=== PATIENT | male | born 1960 | race Caucasian/White ===

== ENCOUNTER 2023-10-24 19:46 | Inpatient (IN) | payer OTHER, SELFPAY ==
[2023-10-24] VITALS (8 sets, daily range): BP systolic 152–199; BP diastolic 90–115; BMI 23.5; BMI 23.4
[2023-10-24 16:48] LABS: Glucose - Point of Care 109 mg/dl (70-99)
--- NOTE | 2023-10-24 16:51 | ED.CVA ---
History of Present Illness
<Albertina River PA-C - Last Filed: 10/24/23 18:48>
General
Chief Complaint: CVA/TIA Symptoms
Source: patient and family
Exam Limitations: clinical condition
Time Seen by Provider: 10/24/23 16:38
Nursing documentation reviewed up to this point in time: agreed with
Onset of Stroke Symptoms
Onset of symptoms known: No
Time pt last seen normal is known: No
Travel History
Have you had any contact with someone who has COVID-19?: No
Do you have any symptoms of coronavirus? Fever > 100 degrees, chills, cough, shortness of breath, sore throat, loss of taste or smell, muscle aches, or headache?: No
History of Present Illness
History of Present Illness:
63-year-old male with a history of hypertension
Presents for change in mental status noticed by family while in the waiting room in the hospital waiting to [facility] Patient was picked up by his daughter and brought to the hospital. His 2 daughters and his sister
admittedly have not seen him in a while. They do report that he has had some issues with alcohol in the past. When the daughter picked him up to come to the hospital to visit his mom they thought that they smelled alcohol on his breath. Patient
was sitting next to his 2 daughters in the waiting room and at 1 point turn to one of his daughters and said where is Severo who is his other daughter who was sitting next to him. The daughter told him she is right next to you and when he looked at
her he said oh I thought you were the nurse. This was obviously off for him and after that it seemed like the family was watching him a little bit more closely, they thought maybe he had a left-sided facial droop. When he went to stand at 1 point
he stumbled almost backwards and the daughter caught him. That alerted the staff to call a rapid response. ED staff went to the scene and ultimately stroke alert ended up being called because of his other symptoms. Patient denies that he had any
alcohol today and he admits that he has days without alcohol without symptoms. He has never had an alcohol withdrawal seizure he does not believe he has an alcohol problem. He has a chronic stutter of his speech which family confirmed is baseline
for him. He also has some neuropathy in his legs and uses a cane chronically as well. Patient seems to have trouble focusing and seems overwhelmed. His daughters and sister report that he has been under a lot of stress
Review of Systems
<Albertina River PA-C - Last Filed: 10/24/23 18:48>
Review of Systems
Allergies reviewed?: Yes
Unable to obtain full review of systems at this time due to: due to acuity
All Other Systems: Not applicable
Phy Exam
<Albertina River PA-C - Last Filed: 10/24/23 18:48>
Physical Exam
Physical Exam:
GENERAL: Alert , anxious
HEAD: NCAT
EYE: pupils equal and reactive, no nystagmus, no photophobia
NECK: Supple,full rom, nontender
ENT: o/p clr, slightly dry lips
CARDIAC: tachycardic. no edema
LUNGS: Clear breath sounds bilaterally, no acute respiratory distress, no wheezes/rales/rhonchi
ABDOMEN: Soft, without focal tenderness, no r/g, no cvat
NEUROLOGICAL: Alert and orientedx 4, cn intact, very subtle facial flattening/droop to left mouth/cheek, stutter to speech, no significant dysarthria, 5/5 strength in UE/LE, sensation intact, pronates ambulates without assistance, neg pronator drift
SKIN: Warm and dry, skin intact.
MUSCULOSKELETAL: No edema, well perfused.
PSYCH: Normal and appropriate interaction.
Course
<Albertina River PA-C - Last Filed: 10/24/23 18:48>
Orders/Labs/Results
Orders:
Orders
10/24/23 16:34
CT Head W/o Cont STROKE ALERT Stat
Reason For Exam: stroke alert
10/24/23 16:37
Electrocardiogram (*1) Urgent
Reason for Study: Other
Other Reason for Exam: Possible Stroke
Bedside Glucose- Treatment ONCE
Cardiac Monitoring- Treatment ONCE
EKG- Treatment ONCE
IV Insert/Care/Rem.- Treatment PRN
Vital Signs As Directed
Frequency: Other
Weight As Directed
Frequency: Once
Comment: ZERO STRETCHER SCALE FOR ACCURATE WEIGHT
O2 Therapy [RESP] Urgent
Titrate/Wean O2 to maintain O2 sat greater than (%): 93
Special Instructions: MAINTAIN CONTINUOUS O2 SATS > OR = 93%
10/24/23 16:40
CT Head/Neck Ang STROKE ALERT Urgent
Comment:
Reason For Exam: facial droop. confusion
10/24/23 16:49
Alcohol Urgent
Complete Blood Count/With Diff Urgent
Comprehensive Metabolic Panel Urgent
PTT Urgent
Prothrombin Time Urgent
Troponin I Urgent
10/24/23 16:50
Lorazepam [Ativan] 0.5 mg IV NOW STA
10/24/23 16:55
0.9% Sodium Chloride 500 ml [Nss] 500 ml IV BOLUS
10/24/23 17:03
Thiamine Injection 500 mg 0.9% Sodium Chloride 250 ml [Nss] 250 ml IV NOW
10/24/23 17:04
0.9% Sodium Chloride [Nss (Preservative Free)] 0.25 ml IV NOW STA
10/24/23 17:30
COVID-19 Antigen Urgent
Source: Nasal Swab
Influenza A+B Rapid Molecular Urgent
KEISHA Source: Nasal Swab
Specimen Description:
10/24/23 17:45
Labetalol HCl [Trandate] 10 mg IV NOW STA
10/24/23 17:59
Lorazepam [Ativan] 1 mg IV NOW STA
10/24/23 18:00
Dextrose 5%/0.9%Sodchl 1000 ml [D5/0.9% Sodium Chloride] 1,000 ml IV 1,000 mls/hr
10/24/23 18:13
MA Neck Without Contrast Routine
Comment:
Reason For Exam: TIA
OK for patient to be off Cardiac Monitoring for MRI: No
Recent pill cam endoscopy?: No
Pacemaker/Defibrillator?: No
Brain Aneurysm Clips?: No
Have you ever worked with metal? grinding metal? welding?: No
Cochlear(ear) implants?: No
Does Pt have a Temp Sensing Cath?: No
Does the patient have IV access?: Yes
Does the patient have any stents?: No
10/24/23 18:18
Alcohol Routine
Lipid Profile [Cardiovascular Evaluation] Routine
TSH Reflex To Free T4 Routine
Urinalysis Reflex To Culture Urgent
Date Specimen was Collected: 10/24/23
Time Specimen was Collected: 16:37
10/24/23 18:19
Urine Drug Abuse Screen Routine
Date Specimen was Collected: 10/24/23
Time Specimen was Collected: 18:18
10/25/23 08:00
Aspirin Chewable [Low Strength Aspirin] 81 mg PO DAILY
Abnormal Lab Results
10/24/23 10/24/23
16:47 16:49
RBC 4.44 L 10^6/uL
(4.70-6.10)
MCV 94.1 H fL
(80.0-94.0)
MCH 33.8 H pg
(27.0-31.0)
Plt Count 111 L 10^3/uL
(130-400)
Absolute Lymphs (auto) 0.3 L 10^3/uL
(1.2-3.4)
Absolute Monos (auto) 0.8 H 10^3/uL
(0.1-0.6)
Neutrophils % 78.5 H %
(42.2-75.2)
Lymphocytes % 5.8 L %
(20.5-51.1)
Monocytes % 13.6 H %
(1.7-9.3)
Sodium 125 L mmol/L
(135-145)
Chloride 95 L mmol/L
(98-107)
Carbon Dioxide 15 L mmol/L
(22-30)
BUN 6 L mg/dl
(9-20)
Glucose 107 H mg/dl
(70-99)
Calcium 7.9 L mg/dl
(8.4-10.2)
Total Bilirubin 2.2 H mg/dl
(0.2-1.3)
AST 163 H U/L
(17-59)
POC Glucose 109 H mg/dl
(70-99)
10/24/23 16:49
10/24/23 16:49
Vital Signs
Initial and Last Documented VS:
Initial Vital Signs
BP
199/107
10/24/23 16:46
Last Documented Vital Signs
Temp Pulse Resp BP Pulse Ox
98.9 F 124 18 172/94 95
10/24/23 16:48 10/24/23 18:00 10/24/23 18:00 10/24/23 18:00 10/24/23 18:00
<Raymond Gonzalez MD - Last Filed: 10/24/23 18:19>
Orders/Labs/Results
Orders:
Orders
10/24/23 16:34
CT Head W/o Cont STROKE ALERT Stat
Reason For Exam: stroke alert
10/24/23 16:37
Electrocardiogram (*1) Urgent
Reason for Study: Other
Other Reason for Exam: Possible Stroke
Bedside Glucose- Treatment ONCE
Cardiac Monitoring- Treatment ONCE
EKG- Treatment ONCE
IV Insert/Care/Rem.- Treatment PRN
Vital Signs As Directed
Frequency: Other
Weight As Directed
Frequency: Once
Comment: ZERO STRETCHER SCALE FOR ACCURATE WEIGHT
O2 Therapy [RESP] Urgent
Titrate/Wean O2 to maintain O2 sat greater than (%): 93
Special Instructions: MAINTAIN CONTINUOUS O2 SATS > OR = 93%
10/24/23 16:40
CT Head/Neck Ang STROKE ALERT Urgent
Comment:
Reason For Exam: facial droop. confusion
10/24/23 16:49
Alcohol Urgent
Complete Blood Count/With Diff Urgent
Comprehensive Metabolic Panel Urgent
PTT Urgent
Prothrombin Time Urgent
Troponin I Urgent
10/24/23 16:50
Lorazepam [Ativan] 0.5 mg IV NOW STA
10/24/23 16:55
0.9% Sodium Chloride 500 ml [Nss] 500 ml IV BOLUS
10/24/23 17:03
Thiamine Injection 500 mg 0.9% Sodium Chloride 250 ml [Nss] 250 ml IV NOW
10/24/23 17:04
0.9% Sodium Chloride [Nss (Preservative Free)] 0.25 ml IV NOW STA
10/24/23 17:30
COVID-19 Antigen Urgent
Source: Nasal Swab
Influenza A+B Rapid Molecular Urgent
KEISHA Source: Nasal Swab
Specimen Description:
10/24/23 17:45
Labetalol HCl [Trandate] 10 mg IV NOW STA
10/24/23 17:59
Lorazepam [Ativan] 1 mg IV NOW STA
10/24/23 18:00
Dextrose 5%/0.9%Sodchl 1000 ml [D5/0.9% Sodium Chloride] 1,000 ml IV 1,000 mls/hr
10/24/23 18:13
MA Neck Without Contrast Routine
Comment:
Reason For Exam: TIA
OK for patient to be off Cardiac Monitoring for MRI: No
Recent pill cam endoscopy?: No
Pacemaker/Defibrillator?: No
Brain Aneurysm Clips?: No
Have you ever worked with metal? grinding metal? welding?: No
Cochlear(ear) implants?: No
Does Pt have a Temp Sensing Cath?: No
Does the patient have IV access?: Yes
Does the patient have any stents?: No
10/24/23 18:18
Alcohol Routine
Lipid Profile [Cardiovascular Evaluation] Routine
TSH Reflex To Free T4 Routine
Urinalysis Reflex To Culture Urgent
Date Specimen was Collected: 10/24/23
Time Specimen was Collected: 16:37
10/24/23 18:19
Urine Drug Abuse Screen Routine
Date Specimen was Collected: 10/24/23
Time Specimen was Collected: 18:18
10/25/23 08:00
Aspirin Chewable [Low Strength Aspirin] 81 mg PO DAILY
Abnormal Lab Results
10/24/23 10/24/23
16:47 16:49
RBC 4.44 L 10^6/uL
(4.70-6.10)
MCV 94.1 H fL
(80.0-94.0)
MCH 33.8 H pg
(27.0-31.0)
Plt Count 111 L 10^3/uL
(130-400)
Absolute Lymphs (auto) 0.3 L 10^3/uL
(1.2-3.4)
Absolute Monos (auto) 0.8 H 10^3/uL
(0.1-0.6)
Neutrophils % 78.5 H %
(42.2-75.2)
Lymphocytes % 5.8 L %
(20.5-51.1)
Monocytes % 13.6 H %
(1.7-9.3)
Sodium 125 L mmol/L
(135-145)
Chloride 95 L mmol/L
(98-107)
Carbon Dioxide 15 L mmol/L
(22-30)
BUN 6 L mg/dl
(9-20)
Glucose 107 H mg/dl
(70-99)
Calcium 7.9 L mg/dl
(8.4-10.2)
Total Bilirubin 2.2 H mg/dl
(0.2-1.3)
AST 163 H U/L
(17-59)
POC Glucose 109 H mg/dl
(70-99)
10/24/23 16:49
10/24/23 16:49
Vital Signs
Initial and Last Documented VS:
Initial Vital Signs
BP
199/107
10/24/23 16:46
Last Documented Vital Signs
Temp Pulse Resp BP Pulse Ox
98.9 F 124 18 172/94 95
10/24/23 16:48 10/24/23 18:00 10/24/23 18:00 10/24/23 18:00 10/24/23 18:00
<Albertina River PA-C - Last Filed: 10/24/23 18:48>
MDM/Problems Addressed
Differential Diagnosis Includes:
STROKE, DISSECTION, TGA, TME, FEVER, ALCOHOL WITHDRAWAL
MDM/Problems Addressed:
63-year-old male with a history of hypertension and some degree of alcohol abuse presents for change in mental status witnessed by his family sitting in the waiting room at the hospital while they were waiting to see another family member. The
patient apparently has not been seen by his family and a little bit and they felt that he smelled of alcohol when they picked him up today around noon. Patient was seated in the waiting room 115 when he turned to one of his daughters asking for
where the other daughter was, she was right next to him and when he looked at her he said he thought she was the nurse. This was obviously concerning to the family, the sister who has not seen him in a little while thought that maybe he had a
facial droop which she was not sure if it was chronic or not. He ultimately got up and seemed to stumble backwards and after that a rapid response was called to sending the ED staff to evaluate. At that time it was determined that he had enough
concerning symptoms to call a stroke alert. Patient was seemingly very anxious on arrival and admits to having a chronic stutter making his speech difficult to appreciate any changes in. He has a very subtle left nasolabial flattening but can
elevate his mouth. He had no other focal findings.
He really seems overwhelmed and having a hard time focusing but ultimately will answer questions appropriately. He is tachycardic in the 120s and hypertensive. I do not smell alcohol on his breath but it sounds as if he does drink beer nearly
every day and it is unclear when the last intake was. He denies that he had any today. This could make alcohol withdrawal possibility. Patient was evaluated by the neurologist upon arrival and calling up the stroke alert, she saw him Pree CT was
able to determine that he is not a TNK candidate. She did for the CTA which is being performed. In the meantime we will order and give him a dose of Ativan and thiamine and IV fluids and reassess. Patient will likely require admission for further
workup
10/24/2023 1801 PM
Patient reassessed, still tacky, 1 teens and hypertensive 180/110. Family was able to offer that the patient has had an alcohol withdrawal episode while hospitalized for another purpose previously. Patient was not initially forthcoming with that
information. I did speak with him privately and got his permission to speak with his family about the results of his testing. Patient will be hospitalized, he does have a slight metabolic acidosis and I switched his fluids to dextrose normal
saline. Will give him more Ativan before considering beta-raj for his hypertension
<Albertina River PA-C - Last Filed: 10/24/23 18:48>
*Critical Care Note
Total Time (30-74mins, 75-104mins- exclusive of procedures): Not Applicable
ED Attending Note
<Albertina River PA-C - Last Filed: 10/24/23 18:48>
-
Portions of this chart may have been created with voice recognition software.� Occasional wrong word or��sound alike� substitutions may have occurred due to the inherent limitations of voice recognition software.
<Raymond Gonzalez MD - Last Filed: 10/24/23 18:19>
ED Attending Note
I performed the substantive portion of visit, reviewed & personally made and approve the management plan that is documented in note by myself or ALHAJI.: Yes
I performed a history and physical exam of patient and discussed management with resident, I reviewed resident's note and agree with documented findings and plan of care.: Yes
ED Attending Note:
63-year-old male brought in from the lobby apparently stumbled caught by family. Seemed a little confused when visiting his mother. Patient states he is under significant family stress. Patient admits to some alcohol use but not hard alcohol.
Denies other complaints. There was a questionable facial droop noted.
On exam patient is nontoxic. He does have a known stutter. He is tachycardic and hypertensive. He has a mild left loss of nasolabial fold but no other facial droop. Cranial nerves II through XII intact otherwise. No drift. [id number]
normal. He is somewhat jittery. Nonfocal otherwise.
Stroke alert was called. Plan plain head CT was negative. Per neurology sent for CT angiography. Admission for further care.
Discharge Plan
Departure
Patient Disposition: Admit
Date of Disposition: 10/24/23
Time of Disposition: 18:04
Admit to: IMU
Presentation/result/management discussed w/ accepting MD/DO: Hospitalist
Patient with high blood pressure during this ER visit?: No
Condition: Fair
Covid-19: Not Applicable
Discharge Problem:
Alcohol withdrawal, Altered mental status
Prescriptions:
No Action
acetaminophen [Tylenol Extra Strength] 500 mg Tablet
500 mg PO DAILYPRN PRN (Reason: mild pain)
irbesartan 300 mg Tablet
300 mg PO DAILY
Patient Comments:
10/24/2023, last filled on 06/23/2023 for 90 tablets.
nebivolol 10 mg Tablet
10 mg PO DAILY
Patient Comments:
10/24/2023, last filled on 05/05/2023 for 90 tablets.
Interventions
Interventions:
*Risk Screen - Suicide Last Done: 10/24/23 16:51
*General Assessment Last Done: 10/24/23 16:50
*Neglect/Abuse Screening Last Done: 10/24/23 16:51
ED- Fall Risk Assessment Last Done: 10/24/23 16:52
*ED COVID-19 Vaccine History Last Done: 10/24/23 16:50
ED- Cardiac Assessment Last Done: 10/24/23 16:52
--- NOTE | 2023-10-24 16:54 | CON.NEURO ---
Consultation
Order
Date of Consultation: 10/24/23
Reason for Consult: Stroke alert
Called in: 16:26
CC: ' It has been a difficult day, emotionally '
HPI: This is a 63-year-old right-handed man who presented to [facility] on 10/24/2023 with encephalopathy and transient left-sided weakness. Mr. Glover was visiting his mother and was noted by his family members to be confused 'he
lost his balance after he got up from seated position and reportedly had left-sided weakness with no associated dysarthria prompting rapid response while in the hospital.
Mr. Glover himself reports no new symptoms. No family history of seizures.
ER VS: 199/100, 126, afebrile in: 6:23 pm
PDMP: Not available
Labs: Glucose�107, sodium�125 normal WBCs, platelets�111, AST�163,
CT head�no acute abnormality, diffuse
CTA head and neck�no hemodynamically significant stenosis.
EKG-sinus tachycardia, QTc Int : 435 ms
PMH: HTN, EtOH addiction,
PSH: Inguinal hernia repair
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
FH: Not contributory to current presenting
All:NKDA
ROS:Constitutional: Negative. Negative for chills, fever and unexpected weight change.
HENT: Negative for ear pain, hearing loss, tinnitus and trouble swallowing.
Eyes: Negative. Negative for photophobia, pain and visual disturbance.
Respiratory: Negative for cough, choking and shortness of breath.
Cardiovascular: Negative for chest pain, palpitations and leg swelling.
Gastrointestinal: Negative for abdominal pain and vomiting.
Endocrine: Negative. Negative for cold intolerance.
Genitourinary: Negative for dysuria, flank pain and urgency.
Musculoskeletal: positive for left knee
Skin: Negative for rash.
Allergic/Immunologic: Negative. Negative for immunocompromised state.
Neurological: Negative for dizziness, tremors, seizures, speech difficulty, numbness and headaches.
Psychiatric/Behavioral: Positive for anxiety
General: Well developed. In moderate distress due to anxiety
Cardio: Regular rate and rhythm without murmur. Extremities are without cyanosis or edema.
Neuro:
Mental Status: Alert, oriented to self, month, year. No hemineglect or aphasia. Follows simple requests consistently. Anxious
Cranial Nerves: . Pupils are equally round and reactive to light. EOMs full. Visual andrews full to confrontation. No ptosis. No nystagmus. V1-V3 intact to light touch and pinprick bilaterally, symmetric. Face symmetric. Normal hearing AU.
The palate elevated well. SCMs and traps 5/5. Tongue midline. No dysarthria.
Motor: No pronator or leg drift.
Sensory: No extinction to double simultaneous stim
Coordination: Bilateral action and postural hand tremor. No dysmetria
Gait: deferred
Assessment and Plan:
I. Hypertensive emergency. TIA. Not a candidate for IV thrombolysis due to lack of stroke syndrome.
II. EtOH addiction, suspected withdrawal
III. Hyponatremia
IV. Encephalopathy (vascular, metabolic)
-Telemetry monitoring
-Blood pressure goal�normotension
-Seizure precaution
-[facility] protocol
-Aspirin 81 mg once a day with close monitoring of thrombocytes
-Brain MRI without dorothea
-Please check LDL, hemoglobin A1c
-DVT prophylaxis
I personally reviewed all radiology and labs along with past medical records pertinent to current medical problems. Total time spent in patient care is 60 minutes.
Thank you for allowing us to participate in the care of this patient. We will continue to follow. Please do not hesitate to contact us with any questions or concerns.
Subjective/Objective
Subjective Data
Date of Service: October 24, 2023
Objective Data
Vital Signs
Temp Pulse Resp BP Pulse Ox
37.2 C 124 16 195/103 96
10/24/23 16:48 10/24/23 16:48 10/24/23 16:48 10/24/23 16:48 10/24/23 16:48
Patient Allergies
No Known Allergies Allergy (Unverified 10/24/23 16:50)
Medications
-
Active Medications
Generic Name Dose Route Start Last Admin
Trade Name Freq PRN Reason Stop Dose Admin
Lorazepam 0.5 mg 10/24/23 16:50
Lorazepam 2 Mg/Ml Vial IV 10/24/23 16:51
NOW STA
Vital Signs and Labs
-
Vital Signs and Labs:
Vital Signs
Temp Pulse Resp BP Pulse Ox
37.2 C 124 18 172/94 95
10/24/23 16:48 10/24/23 18:00 10/24/23 18:00 10/24/23 18:00 10/24/23 18:00
Lab Results
10/24/23 16:49
10/24/23 16:49
PT 13.2 Sec (11.4-14.6) 10/24/23 16:49
INR 1.02 10/24/23 16:49
APTT 27.0 Sec (23.4-35.0) 10/24/23 16:49
Sodium 125 mmol/L (135-145) L 10/24/23 16:49
Potassium 4.0 mmol/L (3.5-5.1) 10/24/23 16:49
BUN 6 mg/dl (9-20) L 10/24/23 16:49
Glucose 107 mg/dl (70-99) H 10/24/23 16:49
Calcium 7.9 mg/dl (8.4-10.2) L 10/24/23 16:49
Medications
-
Medications:
Generic Name Dose Route Start Last Admin
Trade Name Freq PRN Reason Stop Dose Admin
Dextrose/Sodium Chloride 1,000 mls @ 1,000 mls/hr 10/24/23 18:00
D5/0.9% Sodium Chloride IV
.Q1H ALIYA
[2023-10-24 16:55] LABS: % Basophils 0.7 % (0-2); % Eosinophils 0.9 % (0-6); % Immature Granulocytes 0.5 % (0-0.5); % Lymphocytes 5.8 % (20.5-51.1); % Monocytes 13.6 % (1.7-9.3); % Neutrophils 78.5 % (42.2-75.2); Absolute Eosinophils 0.1 10^3/uL (0-0.7); Absolute Lymphocytes 0.3 10^3/uL (1.2-3.4); Absolute Monocytes 0.8 10^3/uL (0.1-0.6); Absolute Neutrophils 4.5 10^3/uL (1.4-6.5); Hematocrit 41.8 % (39.0-52.0); Mean Corp Hgb Conc. 35.9 g/dL (33.0-37.0); Mean Corpuscular Hgb 33.8 pg (27.0-31.0); Mean Corpuscular Volume 94.1 fL (80.0-94.0); Mean Platelet Volume 9.6 fL (7.4-10.4); Nucleated Red Blood Cells % 0 % (-); Platelet Count 111 10^3/uL (130-400); Red Blood Cell Count 4.44 10^6/uL (4.70-6.10); Red Cell Dist. Width 11.9 % (11.5-14.5); White Blood Cell Count 5.7 10^3/uL (4.8-10.8)
[2023-10-24] MEDS: NSS 500 IV (16:59)
[2023-10-24] MEDS: ATIVAN 0.5 MG IV (17:08)
[2023-10-24 17:11] LABS: INR 1.02; PT 13.2 Sec (11.4-14.6)
[2023-10-24 17:20] LABS: ALT (SGPT) 45 U/L (0-50); AST (SGOT) 163 U/L (17-59); Albumin 4.2 g/dl (3.5-5.0); Alcohol 118 mg/dl; Alkaline Phosphatase 90 U/L (38-126); Blood Urea Nitrogen 6 mg/dl (9-20); Calcium 7.9 mg/dl (8.4-10.2); Carbon Dioxide 15 mmol/L (22-30); Chloride 95 mmol/L (98-107); Estimated Creatinine Clearance 102 ml/min; Glucose 107 mg/dl (70-99); Sodium 125 mmol/L (135-145); Total Bilirubin 2.2 mg/dl (0.2-1.3); Troponin I < 0.012 ng/ml; eGFR > 60.00
[2023-10-24] MEDS: THIAMINE INJECTION 255 MG IV (17:38)
[2023-10-24 17:51] LABS: COVID-19 Antigen Negative (Negative)
[2023-10-24] MEDS: ATIVAN 1 MG IV ×3 (18:25→23:20)
[2023-10-24] MEDS: D5/0.9% SODIUM CHLORIDE 1000 IV (18:28)
[2023-10-24] MEDS: NSS (PRESERVATIVE FREE) 0.25 ML IV (18:31)
[2023-10-24 18:36] LABS: Urine Albumin Trace (Neg - Trace); Urine Bilirubin Negative (Negative); Urine Character Clear (Clear); Urine Color Yellow; Urine Glucose Negative (Negative); Urine Ketone Negative (Negative); Urine Leukocyte Negative (Negative); Urine Nitrite Negative (Negative); Urine Occult Blood Negative (Negative); Urine Urobilinogen Negative (Neg - 1+); Urine pH 6.5 (5.0-9.0)
[2023-10-24 18:48] LABS: Amphetamines Negative (Negative); Barbiturates Negative (Negative); Benzodiazepines Negative (Negative); Buprenorphine Negative (Negative); Cocaine Negative (Negative); Marijuana Negative (Negative); Methadone Negative (Negative); Methamphetamines Negative (Negative); Opiates Negative (Negative); Phencyclidine Negative (Negative); Tricyclic Antidepressants Negative (Negative)
--- NOTE | 2023-10-24 18:53 | HPS.HSE ---
Family Physician
-
Family Physician: INTERVIEWE UNKNOWN - PT NOT
Chief Complaint
-
Slurred speech
History of Present Illness
63-year-old man was in hospital waiting room visiting family, became confused and his family thought that he had a left-sided facial droop.� Then he went to stand and stumbled (his daughter caught him).� That alerted the ER staff to call a rapid
response.� A stroke alert was called.� Patient denied that he had any alcohol today and he admits that he has days without alcohol without symptoms, but his alcohol level was 118.� He states that he has never had an alcohol withdrawal seizure and
that he does not believe he has an alcohol problem.� He has a chronic stutter of his speech, and He also has some neuropathy in his legs and uses a cane chronically as well.� Patient has trouble focusing and seems confused.� His daughters and sister
report that he has been under a lot of stress. CT and CTA do not show obvious stroke.
Medical History
Past Medical History
Past Medical History: Reports Other
Additional Past Medical History:
Essential HTN
Alcoholism
Past Surgical History: Reports None
Social History
Unable to obtain full social history at this time due to: Other (Pt intoxicated)
Tobacco: Non-smoker
Alcohol: Daily
Personal: Single
Living: Alone
Family History
Family History: Not pertinent
Allergies / Home Medications
Allergies reflects when Allergies were last updated in [employer].
Home Medications with original date entered in [employer]
Allergy/Medication List:
Allergies
Allergy/AdvReac Type Severity Reaction Status Date / Time
No Known Allergies Allergy Unverified 10/24/23 16:50
Home Medications
acetaminophen 500 mg tablet (Tylenol Extra Strength) 500 mg PO DAILYPRN PRN mild pain 10/24/23
irbesartan 300 mg tablet 300 mg PO DAILY 10/24/23
nebivolol 10 mg tablet 10 mg PO DAILY 10/24/23
Review of Systems
-
Unable to obtain full review of systems at this time due to: Other (intoxication)
History Source: Patient
A 12 point ROS was completed and negative except as noted: Yes
Physical Exam
Vital Signs
Vital Signs
Temp Pulse Resp BP Pulse Ox
98.9 F 124 18 172/94 95
10/24/23 16:48 10/24/23 18:00 10/24/23 18:00 10/24/23 18:00 10/24/23 18:00
Physical Exam
General: Well Developed, Well Nourished and Appears Chronically Ill
HEENT: NormoCephalic, Anicteric, Moist mucous membranes, Nose Appears Normal and Ears Appear Normal
Respiratory: Clear
Cardiac: S1/S2 and Tachycardia
GI: Soft, Non Tender and Non Distended
Musculoskeletal: No Clubbing, No Cyanosis and No Edema
Skin: Warm, Dry and Rash (dry flaky skin)
Neuro: Awake, Alert and Tremors
Psych: Confused and Anxious
Laboratory Results
-
10/24/23 16:49
10/24/23 16:49
Laboratory Results
PT 13.2 Sec (11.4-14.6) 10/24/23 16:49
INR 1.02 10/24/23 16:49
APTT 27.0 Sec (23.4-35.0) 10/24/23 16:49
Total Bilirubin 2.2 mg/dl (0.2-1.3) H 10/24/23 16:49
AST 163 U/L (17-59) H 10/24/23 16:49
ALT 45 U/L (0-50) 10/24/23 16:49
Alkaline Phosphatase 90 U/L (38-126) 10/24/23 16:49
Troponin I < 0.012 ng/ml 10/24/23 16:49
Data Reviewed
-
Lab Data: Labs Reviewed by me
Impression/Plan
-
IMPRESSION:
63 man with change of mental status, slurred speech, stroke alert called. Etoh 118.
PLAN:
1. Stroke alert. CT does not show obvious stroke.
Pt seen by neurology, neurology recommends:
'-Telemetry monitoring
-Blood pressure goal�normotension
-Seizure precaution
-CIWA protocol
-Aspirin 81 mg once a day with close monitoring of thrombocytes
-Brain MRI without dorothea
-Please check LDL, hemoglobin A1c
-DVT prophylaxis'
Will follow these recs.
Furhtermore, Case management needed for probable etoh rehab when ready for discharge
Full code
VCD for DVTp
[2023-10-24 18:55] LABS: Alcohol 88 mg/dl; Total Cholesterol 157 mg/dl (50-199); Triglyceride 51 mg/dl (10-149); Very Low Density Lipoprotein 10 mg/dl (0-30)
[2023-10-24 19:06] LABS: HDL Cholesterol 132 mg/dl; LDL Cholesterol, Calculated 15 mg/dl
[2023-10-24 19:26] LABS: TSH Reflex To Free T4 2.04 uIU/ml (0.47-4.68)
[2023-10-24] MEDS: D5/0.9% SODIUM CHLORIDE IV ×3 (21:20→22:06)
[2023-10-24] MEDS: NSS 1000 IV (22:12)
[2023-10-24] MEDS: THIAMINE INJECTION 200 MG IV (23:20)
[2023-10-25] VITALS (10 sets, daily range): BP systolic 118–188; BP diastolic 78–121; PULSE 103–111; O2SAT 97; BMI 23.2
[2023-10-25 00:13] LABS: Troponin I < 0.012 ng/ml
[2023-10-25] MEDS: LOPRESSOR 5 MG IV (00:28)
[2023-10-25] MEDS: ATIVAN 1 MG IV ×2 (00:28→01:14)
[2023-10-25] MEDS: TYLENOL 650 MG PO (00:38)
--- NOTE | 2023-10-25 01:00 | PTCARENOTE ---
Received pt from ED, pulled pt from stretcher to bed. AAOx3 b/l tremors. No complaints of pain- BP 185/110, HR 115- notified INFORMATION ENGINEER- see mar. MSAS score between 8-10 (see MAR), NIH-2, IVF as ordered
[2023-10-25] MEDS: PHENOBARBITAL 104 MG IV (01:20)
[2023-10-25] MEDS: NSS 1000 IV (05:08)
--- NOTE | 2023-10-25 05:30 | W.PN.UPDATE ---
Update Note
Progress Note Update
notified by nurse about increased BP 180/100s HR 130s. Pt with poss CVA and also etoh withdrawal. PT very tremulous and initially requiring very freq doses of iv ativan which did minimal. pt still remained restless and tremulous. PT not forthcoming
with how much he really drinks. Will try dose of iv phenobarb and assess response.
[2023-10-25] MEDS: BYSTOLIC 10 MG PO (08:09)
[2023-10-25] MEDS: AVAPRO 300 MG PO (08:12)
[2023-10-25] MEDS: LOW STRENGTH ASPIRIN 81 MG PO (08:12)
[2023-10-25] MEDS: FOLVITE 1 MG PO (08:13)
[2023-10-25] MEDS: THIAMINE INJECTION 200 MG IV ×3 (08:13→23:58)
--- NOTE | 2023-10-25 08:20 | PTOTSP ---
Speech Language Pathology
Pt seen for cognitive-linguistic and speech evaluations. Pt with dysfluencies, and he reported he has stuttered since childhood. Cognitive-linguistic status evaluated via the [facility] Mental Status (UMS) Examination. Pt with a
score of 7/30 where normal range is 27-30. Pt with mod-severe cognitive deficits with no awareness.
Pt also seen for clinical bedside swallow evaluation. P.O. trials of puree, regular solids, and thin liquids provided. Slightly prolonged mastication of regular solids with trace diffuse oral residue, which cleared with a cued liquid wash. Audible
swallow, potentially indicative of incoordination, noted at times with liquids. Also seen with med pass with pill first with liquid. Pt pocketing pill. Trialed whole in puree. Chewed first pill, then pocketed others, but was able to clear with a
liquid wash. Slight wet vocal quality post liquid wash with pills, which was pt was able to clear with a cued cough.
Recommend:
(1) Regular solids/thin liquids
(2) Aspiration precautions: sit upright, single sips, slow rate, ensure oral cavity clear post P.O. intake
(3) Meds whole in puree. May pocket pills with need for additional puree or sips of liquid
(4) Will consider VSE if any difficulty noted with meals.
(5) COAL BRIQUETTE MACHINE OPERATOR to continue to follow for dysphagia and cognitive-linguistic tx
[2023-10-25 08:41] LABS: % Basophils 0.8 % (0-2); % Eosinophils 0.5 % (0-6); % Immature Granulocytes 0.3 % (0-0.5); % Lymphocytes 5.2 % (20.5-51.1); % Monocytes 16.9 % (1.7-9.3); % Neutrophils 76.3 % (42.2-75.2); Absolute Lymphocytes 0.2 10^3/uL (1.2-3.4); Absolute Monocytes 0.7 10^3/uL (0.1-0.6); Absolute Neutrophils 2.9 10^3/uL (1.4-6.5); Hematocrit 38.4 % (39.0-52.0); Hemoglobin 13.6 g/dL (13.0-18.0); Mean Corp Hgb Conc. 35.4 g/dL (33.0-37.0); Mean Corpuscular Hgb 33.3 pg (27.0-31.0); Mean Corpuscular Volume 94.1 fL (80.0-94.0); Nucleated Red Blood Cells % 0 % (-); Red Blood Cell Count 4.08 10^6/uL (4.70-6.10); Red Cell Dist. Width 11.9 % (11.5-14.5); White Blood Cell Count 3.9 10^3/uL (4.8-10.8)
[2023-10-25 08:57] LABS: Troponin I < 0.012 ng/ml
[2023-10-25 09:20] LABS: Blood Urea Nitrogen 6 mg/dl (9-20); Calcium 8.4 mg/dl (8.4-10.2); Carbon Dioxide 21 mmol/L (22-30); Chloride 92 mmol/L (98-107); Estimated Creatinine Clearance > 125 ml/min; Glucose 102 mg/dl (70-99); HDL Cholesterol 107 mg/dl; LDL Cholesterol, Calculated 24 mg/dl; Potassium 3.5 mmol/L (3.5-5.1); Sodium 126 mmol/L (135-145); Total Cholesterol 139 mg/dl (50-199); Triglyceride 42 mg/dl (10-149); Very Low Density Lipoprotein 8 mg/dl (0-30); eGFR > 60.00
[2023-10-25 09:28] LABS: Mean Platelet Volume 10.3 fL (7.4-10.4)
[2023-10-25 09:29] LABS: Platelet Count 86 10^3/uL (130-400)
--- NOTE | 2023-10-25 11:26 | W.PN.HOSP.TC ---
Today's Communication/Plan
-
see bold
Assessment / Plan
Assessment / Plan
Gen: NAD, AAOx2-3.
Eyes: EOMI, PERRLA, no scleral icterus.
Neck: supple.
CV: RRR, +S1/S2, no m/r/g.
Resp: CTAB, no rales, wheezes, or rhonchi.
Abd: +BS, soft, NT, ND
Skin: No rashes.
Neuro: CN 2-12 intact, non-focal, tremulous.
Psych: moderately anxious, moderately flat affect
CT brain: No acute intracranial abnormality.
CTA head/neck: No CTA evidence for high-grade stenosis or occlusion of the arterial vasculature in the head or neck.
Confusion, L-sided facial droop:
-Occurred while patient was in the hospital waiting room visiting family. Stroke alert was called.
-Suspect symptoms are due to alcohol withdrawal
-cont MSAS protocol (thiamine/folate/Ativan PRN)
-given a dose of IV phenobarbital
-MRI brain, MRA neck pending but, as per discussion with Dr. Garcia, no acute CVA on MRI brain.
-at this point the etiology of the patient's symptoms appears to be acute delirium tremens. Start Phenobarbital taper. Transfer to IMU. Change IVFs to D5NS @ 150cc/hr.
Hyponatremia: Likely due to EtOH abuse. Check serum osm, urine osm, urine Na.
Essential hypertension: exacerbated by DTs. Cont Avapro/Bystolic.
FULL code
Unclear why pt is not on pharmacological DVT proph, will order Lovenox at this time.
Anticipated Discharge: > 48 hours
Subjective/Interval History
-
Date of Service: October 25, 2023
Objective Data
-
Labs:
Laboratory Results
10/25/23
07:54
WBC 3.9 L
Hgb 13.6
Hct 38.4 L
Plt Count 86 L D
Sodium 126 L
Potassium 3.5
Chloride 92 L
Carbon Dioxide 21 L
BUN 6 L
Creatinine 0.6 L
Glucose 102 H
Calcium 8.4
Vital Signs:
Vital Signs
Temp Pulse Resp BP Pulse Ox
98 F 103 18 174/112 98
10/25/23 07:40 10/25/23 10:01 10/25/23 07:40 10/25/23 10:01 10/25/23 07:40
I&O
10/24/23 10/25/23 10/26/23
06:59 06:59 06:59
Intake Total 240 / 240
Output Total 220 / 220
Balance 20 / 20
--- NOTE | 2023-10-25 12:03 | W.PN.NEURO.1 ---
Today's Communication / Plan
-
Can stop aspirin and NIH scales
Provide IV thiamine and folate
Monitor and treat withdrawal from alcohol
Goal normotension
PRN Ativan
Phenobarbital is reasonable
Will follow as needed call with questions or concerns
Neuro Assessment/Plan
Assessment
63-year-old man with past medical history of hypertension alcohol abuse who was waiting in the hospital room visiting his family seen to have confusion and left-sided facial asymmetry triggering stroke alert.
Significant hypertension on blood pressure check in the ER
Blood alcohol level was elevated to 118
MRI of the brain shows no infarction or hemorrhage
Etiology is most likely toxic metabolic encephalopathy or hypertensive encephalopathy
Concern for alcohol intoxication and now showing some signs concerning for withdrawal with hypertension, tremor, mild confusion
Very unlikely that this is TIA
Brain MRI is ruled out stroke
Subjective/Objective
Subjective Data
Date of Service: October 25, 2023
No acute events, patient denies headache, unilateral weakness or paresthesia, vision change, discussed MRI and CTA results
Objective Data
Vital Signs
Temp Pulse Resp BP Pulse Ox
98.2 F 90 18 163/100 94
10/25/23 11:30 10/25/23 11:30 10/25/23 11:30 10/25/23 11:30 10/25/23 11:30
Lab Results
10/25/23 07:54
10/25/23 07:54
PT 13.2 Sec (11.4-14.6) 10/24/23 16:49
INR 1.02 10/24/23 16:49
APTT 27.0 Sec (23.4-35.0) 10/24/23 16:49
Sodium 126 mmol/L (135-145) L 10/25/23 07:54
Potassium 3.5 mmol/L (3.5-5.1) 10/25/23 07:54
BUN 6 mg/dl (9-20) L 10/25/23 07:54
Glucose 102 mg/dl (70-99) H 10/25/23 07:54
Calcium 8.4 mg/dl (8.4-10.2) 10/25/23 07:54
LDL Cholesterol, Calc 24 mg/dl 10/25/23 07:54
Ur Buprenorphine Negative (Negative) 10/24/23 18:19
Patient Allergies
No Known Allergies Allergy (Unverified 10/24/23 16:50)
Review of Systems
-
History Source: Patient
All other systems: Reviewed and negative
Constitutional: No Symptoms
EENT: No Symptoms Reported
Respiratory: No Symptoms
Cardiac: No Symptoms
Abdomen/GI: No Symptoms
Genitourinary: No Symptoms
Musculoskeletal: No Symptoms
Skin: No Symptoms
Neuro: Speech Problem and See existing Neuro Note
Endocrine: No Symptoms
Hematologic / Lymphatic: No Symptoms
Allergy / Immunology: No Symptoms
Physical Exam
-
General: Comfortable and Appears Chronically Ill
HEENT: Atraumatic
Respiratory: No Dyspnea; Negative Wheezes
GI: Normal Bowel Sounds
Skin: Unremarkable
Psych: Negative Confused or Agitated
Extended Neurological Exam
Attention Span & Concentration: Awake, Alert and Interactive
Memory: Unremarkable
Tremor: Distal, Frequent and Other (Bilateral distal arm tremor, postural, not at rest)
Speech: Other (Stuttering, no aphasia, no dysarthria)
Cranial Nerve II: Left Eye: Pupillary Reactivity Unremarkable, Pupillary Size Unremarkable and Visual Louise Intact
Cranial Nerve II: Right Eye: Pupillary Reactivity Unremarkable, Pupillary Size Unremarkable and Visual Louise Intact
Cranial Nerves III, IV, : Extraocular Movement: Extraocular Movement Full in all Directions
Muscle Strength, Overall: Full Throughout
Pronator Drift: No Drift in Upper Extremities
Touch Sensation: Unremarkable
Coordination: Gihabh-hoia-bsghkz Testing Unremarkable
Data Reviewed
-
CT-A: Report Reviewed and Image Reviewed
CT Head: Report Reviewed and Image Reviewed
MRA Head: Report Reviewed and Image Reviewed
[2023-10-25] MEDS: D5/0.9% SODIUM CHLORIDE 1000 IV ×2 (12:16→18:16)
[2023-10-25] MEDS: LOVENOX 40 MG SC (12:17)
[2023-10-25] MEDS: LUMINAL 97.2000000000000028 MG PO ×3 (12:17→21:09)
[2023-10-25 12:20] LABS: Troponin I < 0.012 ng/ml
[2023-10-25 12:26] LABS: Osmolality Serum 258 mOsm/kg (275-300)
[2023-10-25] MEDS: NSS IV (12:30)
[2023-10-25 13:56] LABS: Osmolality Urine 334 mOsm/kg (300-900)
[2023-10-25 14:03] LABS: Urine Sodium 140 mmol/L (30-90)
--- NOTE | 2023-10-25 14:40 | CM ---
CM met with dtr and future son in-law and had conference call with spouse/Sonia
Pt and spouse reside in a [address] with [place]
Pt lives on the first floor
Pt is typically independent with his ADLs and drives+
Pt recently was laid off from his job and has no income stream
Pt insured through [employer] COBRA plan
PCP- Oliver Garcia
Rx- [facility] L[facility]
Of note, pt and spouse in the middle of a divorce
They remain legally
Pt has hx of alcoholism
Had a fall associated with W/D and ended up in [facility] for SNF rehab
Acute rehab recommended by therapy
PAC list provided to family
Only interested in rehabs near [facility] at this time
Plan for pt to be transferred to IMU
Explained role of prior auth in rehab coverage
As pt with COBRA policy, will need further clarification on coverage and benefits for post dc services
Discharge Disposition- acute rehab
--- NOTE | 2023-10-25 16:45 | PTCARENOTE ---
Report given to IMU RN. Pt taken to IMU in bed with belongings, calm during transfer, VSS, NSR on tele.
[2023-10-25] MEDS: LIPITOR 40 MG PO (18:17)
--- NOTE | 2023-10-25 18:37 | PTCARENOTE ---
recieved pt from 4th floor upgraded to IMU. pt calm, no tremors or signs of etoh withdrwal. sinus rythym on monitor. assessment as charted.
--- NOTE | 2023-10-25 23:30 | PTCARENOTE ---
Assumed care of Pt from day RN. Pt AAOX3 appearst o be resting comfortable. Pt remains on Q4 MSAS. Pt Q24 neuro checks completed at 2300.
[2023-10-26] VITALS (16 sets, daily range): BP systolic 123–185; BP diastolic 76–123; PULSE 75; BMI 23.3
[2023-10-26] MEDS: D5/0.9% SODIUM CHLORIDE 1000 IV ×2 (00:52→07:58)
[2023-10-26 06:01] LABS: Blood Urea Nitrogen 4 mg/dl (9-20); Carbon Dioxide 22 mmol/L (22-30); Chloride 97 mmol/L (98-107); Estimated Creatinine Clearance > 125 ml/min; Glucose 121 mg/dl (70-99); Potassium 3.2 mmol/L (3.5-5.1); Sodium 125 mmol/L (135-145); eGFR > 60.00
[2023-10-26] MEDS: LOVENOX 40 MG SC (07:57)
[2023-10-26] MEDS: BYSTOLIC 10 MG PO (07:57)
[2023-10-26] MEDS: LUMINAL 97.2000000000000028 MG PO ×3 (07:57→21:03)
[2023-10-26] MEDS: FOLVITE 1 MG PO (07:58)
[2023-10-26] MEDS: THIAMINE INJECTION 200 MG IV ×3 (07:58→23:55)
--- NOTE | 2023-10-26 10:33 | W.PN.HOSP.TC ---
Today's Communication/Plan
-
see bold
Assessment / Plan
Assessment / Plan
Gen: NAD, Awake and alert.
Eyes: EOMI, PERRLA, no scleral icterus.
Neck: supple.
CV: remains RRR, +S1/S2, no m/r/g.
Resp: remains CTAB, no rales, wheezes, or rhonchi.
Abd: +BS, soft, NT, ND
Skin: No rashes.
Neuro: CN 2-12 intact, non-focal, very minimal tremor.
Psych: calm, mildly flat affect
CT brain: No acute intracranial abnormality.
CTA head/neck: No CTA evidence for high-grade stenosis or occlusion of the arterial vasculature in the head or neck.
MRI brain: No MRI evidence for an acute infarct.
MRA neck: Normal noncontrast MRA of the neck.
Acute metabolic encephalopathy due to delirium tremens:
-presented with confusion, L-sided facial droop which occurred while patient was in the hospital waiting room visiting family. Stroke alert was called. Acute CVA was ruled out by MRI brain above.
-Suspect symptoms are due to alcohol withdrawal
-cont MSAS protocol (thiamine/folate/Ativan PRN)
-given a dose of IV phenobarbital then placed on phenobarbital taper.
-cont IVFs
Hypotonic hyponatremia:
-Likely due to EtOH abuse
-serum Osm 258, UOsm 334, Jennifer 140
-c/s nephrology
Essential hypertension:
-exacerbated by DTs. Cont Avapro/Bystolic.
Hypokalemia:
-IV K, check Mg
FULL/Lovenox
Remain in IMU today.
Anticipated Discharge: 24 - 48 hours
Subjective/Interval History
-
Date of Service: October 26, 2023
Denies CP/SOB/abd pain.
Objective Data
-
Labs:
Laboratory Results
10/26/23
05:04
Sodium 125 L
Potassium 3.2 L
Chloride 97 L
Carbon Dioxide 22
BUN 4 L
Creatinine 0.6 L
Glucose 121 H
Calcium 8.0 L
Vital Signs:
Vital Signs
Temp Pulse Resp BP Pulse Ox
98.0 F 71 16 163/93 96
10/26/23 07:38 10/26/23 06:02 10/26/23 06:02 10/26/23 06:02 10/26/23 02:00
I&O
10/25/23 10/26/23 10/27/23
06:59 06:59 06:59
Intake Total 240 / 240 2580 / 2580
Output Total 220 / 220 1300 / 1300 850 / 850
Balance 1280 / 1280 -850 / -850
[2023-10-26] MEDS: AVAPRO 300 MG PO (10:57)
[2023-10-26 11:08] LABS: Magnesium 1.8 mg/dl (1.6-2.3)
[2023-10-26] MEDS: KCL 270 MEQ IV (11:40)
--- NOTE | 2023-10-26 12:01 | CM ---
CM reviewed chart- pt in IMU and ADC 1-2 days
Pt continues on MSAS protocol- 0
Acute recommended by therapy
Outreach to Dr Fermin requesting new PT/OT order due to IMU transfer
Call with [employer] to confirm if pt has SNF or acute rehab coverage in COBRA policy
Per [employer]- policy terminated 10/06/23
Admissions confirms this as well
Bedside meeting with pt to review
He notes will make calls to follow up on insurance issue
Call to as well with update regarding termed COBRA policy
Pt referred to [facility] for [facility] justice
Discharge Disposition- acute recommended- uninsured
--- NOTE | 2023-10-26 15:21 | CON.MD ---
Consultation - Medical
-
IMP:
Acute metabolic encephalopathy due to delirium tremens
Hypotonic hyponatremia
Essential hypertension
Hypokalemia
ETOH abuse
Anemia
Thrombocytopenia
Hypocalcemia
Plan:
A/w AMS, stroke alert but w/u neg
persistent hyponatremia, no previous labs to compare
high ADH state U osmo 334, U na high on NS
suspect multifactorial etiology mainly from ETOH, poor solute intake BUN is only 4
TSH is normal, FR 48 ounces/day
will give dose of samsca
BP are high with DT, consider clonidine , already on BB
replace k
check vit D level for mild hypocalcemia
If po intake is adequate likely wean off IVF
[id number]
[2023-10-26] MEDS: LIPITOR 40 MG PO (17:45)
[2023-10-26] MEDS: SAMSCA 15 MG PO (17:45)
[2023-10-26] MEDS: LOPRESSOR 5 MG IV (17:45)
[2023-10-27] VITALS (10 sets, daily range): BP systolic 129–181; BP diastolic 54–105; PULSE 72–82; BMI 22.7
--- NOTE | 2023-10-27 04:47 | DOWNTIME ---
There was a [employer] Client Calculus Professor Downtime on 10/27/2023 from 0111 to 10/27/2023 at 0405. Downtime documentation of patient's care, including medication administrations, has been reconciled in the electronic record per guidelines. Refer to the
patient's paper chart under the miscellaneous tab to see printed paper medication records and downtime forms.
[2023-10-27 07:18] LABS: Vitamin D, 25-OH*** 14.4 ng/mL (30-80)
--- NOTE | 2023-10-27 08:54 | W.PN.HOSP.TC ---
Today's Communication/Plan
-
see bold
Assessment / Plan
Assessment / Plan
Gen: remains NAD, Awake and alert.
Eyes: EOMI, PERRLA, no scleral icterus.
Neck: supple.
CV: continues to remain RRR, +S1/S2, no m/r/g.
Resp: continues to remain CTAB, no rales, wheezes, or rhonchi.
Abd: +BS, soft, NT, ND
Skin: No rashes.
Neuro: CN 2-12 intact, non-focal.
Psych: calm, mildly flat affect
CT brain: No acute intracranial abnormality.
CTA head/neck: No CTA evidence for high-grade stenosis or occlusion of the arterial vasculature in the head or neck.
MRI brain: No MRI evidence for an acute infarct.
MRA neck: Normal noncontrast MRA of the neck.
Acute metabolic encephalopathy due to delirium tremens:
-presented with confusion, L-sided facial droop which occurred while patient was in the hospital waiting room visiting family. Stroke alert was called. Acute CVA was ruled out by MRI brain above.
-Suspect symptoms are due to alcohol withdrawal
-cont MSAS protocol (thiamine/folate/Ativan PRN)
-given a dose of IV phenobarbital then placed on phenobarbital taper.
-was on IVFs, now off
Hypotonic hyponatremia:
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
-serum Osm 258, UOsm 334, Jennifer 140
-samsca 15mg given on 10/26/23
-renal following
Essential hypertension:
-exacerbated by DTs. Cont Avapro/Bystolic.
Hypokalemia:
-s/p IV K
FULL/Lovenox
Anticipated Discharge: 24 - 48 hours
Subjective/Interval History
-
Date of Service: October 27, 2023
Denies CP/SOB/AH/VN/anxiety/diaphoresis
Objective Data
-
Vital Signs:
Vital Signs
Temp Pulse Resp BP Pulse Ox
99.2 F 61 17 159/89 100
10/27/23 03:00 10/27/23 06:09 10/27/23 06:09 10/27/23 06:09 10/27/23 04:00
I&O
10/26/23 10/27/23 10/28/23
06:59 06:59 06:59
Intake Total 2580 / 2580 1860 / 1860
Output Total 1300 / 1300 3750 / 3750
Balance 1280 / 1280 -1890 / -1890
[2023-10-27] MEDS: FOLVITE 1 MG PO (10:02)
[2023-10-27] MEDS: LUMINAL 97.2000000000000028 MG PO (10:02)
[2023-10-27] MEDS: AVAPRO 300 MG PO (10:02)
[2023-10-27] MEDS: DRISDOL (VITAMIN D2) 50000 UNITS PO (10:02)
[2023-10-27] MEDS: BYSTOLIC 10 MG PO (10:03)
[2023-10-27] MEDS: MAGNESIUM OXIDE 500 MG PO ×2 (10:03→20:41)
[2023-10-27] MEDS: THIAMINE INJECTION 200 MG IV ×2 (10:03→16:16)
[2023-10-27] MEDS: LOVENOX 40 MG SC (10:03)
[2023-10-27 10:36] LABS: Hematocrit 42.7 % (39.0-52.0); Hemoglobin 15.2 g/dL (13.0-18.0); Mean Corp Hgb Conc. 35.6 g/dL (33.0-37.0); Mean Corpuscular Hgb 33.7 pg (27.0-31.0); Mean Corpuscular Volume 94.7 fL (80.0-94.0); Mean Platelet Volume 9.7 fL (7.4-10.4); Platelet Count 103 10^3/uL (130-400); Red Blood Cell Count 4.51 10^6/uL (4.70-6.10); Red Cell Dist. Width 11.9 % (11.5-14.5)
[2023-10-27 10:47] LABS: ALT (SGPT) 37 U/L (0-50); AST (SGOT) 105 U/L (17-59); Albumin 4.3 g/dl (3.5-5.0); Alkaline Phosphatase 91 U/L (38-126); Blood Urea Nitrogen 7 mg/dl (9-20); Calcium 8.9 mg/dl (8.4-10.2); Carbon Dioxide 26 mmol/L (22-30); Chloride 97 mmol/L (98-107); Estimated Creatinine Clearance 114 ml/min; Glucose 100 mg/dl (70-99); Potassium 3.3 mmol/L (3.5-5.1); Sodium 131 mmol/L (135-145); Total Bilirubin 2.5 mg/dl (0.2-1.3); Total Protein 7.3 g/dl (6.3-8.2); eGFR > 60.00
--- NOTE | 2023-10-27 11:30 | PTCARENOTE ---
Report given to Isabella.
--- NOTE | 2023-10-27 14:10 | W.PN.NEPH.PH ---
Today's Communication / Plan
-
- Na improved to 131
Assessment/Plan
-
IMP:
Acute metabolic encephalopathy due to delirium tremens
Hypotonic hyponatremia
Essential hypertension
Hypokalemia
ETOH abuse
Anemia
Thrombocytopenia
Hypocalcemia
Plan:
A/w AMS, stroke alert but w/u neg
persistent hyponatremia, no previous labs to compare
high ADH state U osmo 334, U na high on NS
suspect multifactorial etiology mainly from ETOH, poor solute intake BUN is only 4
TSH is normal, FR 48 ounces/day
Na 131 today s/p Samsca (125 yesterday)
replace k
Vitamin D levels very low --> could consider high dose vitamin D weekly on discharge
restarted regular diet
BP are high with DT, consider clonidine if needed, already on BB
check vit D level for mild hypocalcemia
-
-
Date of Service: October 27, 2023
CC / HPI / ROS
-
Chief Complaint:
hyponatremia
History of Present Illness:
alcohol withdrawal with concern for DTs
Na 125 --> 131 s/p samsca
Review of Systems:
blood pressures remain elevated, consider clonidine
Labs
-
Labs:
WBC 4.0 10^3/uL (4.8-10.8) L 10/27/23 10:06
RBC 4.51 10^6/uL (4.70-6.10) L 10/27/23 10:06
Hgb 15.2 g/dL (13.0-18.0) 10/27/23 10:06
Hct 42.7 % (39.0-52.0) 10/27/23 10:06
Plt Count 103 10^3/uL (130-400) L 10/27/23 10:06
Sodium 131 mmol/L (135-145) L 10/27/23 10:06
Potassium 3.3 mmol/L (3.5-5.1) L 10/27/23 10:06
Chloride 97 mmol/L (98-107) L 10/27/23 10:06
Carbon Dioxide 26 mmol/L (22-30) 10/27/23 10:06
BUN 7 mg/dl (9-20) L 10/27/23 10:06
Creatinine 0.7 mg/dL (0.7-1.3) 10/27/23 10:06
eGFR > 60.00 10/27/23 10:06
Glucose 100 mg/dl (70-99) H 10/27/23 10:06
Calcium 8.9 mg/dl (8.4-10.2) 10/27/23 10:06
Albumin 4.3 g/dl (3.5-5.0) 10/27/23 10:06
Physical Exam
-
Vital Signs:
Vital Signs
Temp Pulse Resp BP Pulse Ox
98.6 F 74 18 181/105 99
10/27/23 12:44 10/27/23 12:44 10/27/23 12:44 10/27/23 12:44 10/27/23 12:44
Cardiovascular:: Regular rate and rhythm
Respiratory:: Bilateral: Coarse
Lung Excursion:: Normal
Abdomen:: Nontender and Soft
Bowel Sounds:: Normal
Extremity Edema:: None: Bilateral:
Castaneda Catheter: No
--- NOTE | 2023-10-27 14:52 | PN.CDI ---
CDI
- -
CDI:
Physician Documentation Request
Admit Date: 10/24/23 19:46
Dear Doctor Jeny,
Patient admitted for change of mental status.
ED Physician Documentation: 'where is Severo who is his other daughter who was sitting next to him...she is right next to you and when he looked at her he said oh I thought you were the nurse.'
H&P: 'his alcohol level was 118...Pt intoxicated'
10/25 Neurology PN: 'Etiology is most likely toxic metabolic encephalopathy or hypertensive encephalopathy'
10/26 Hospitalist PN: 'Acute metabolic encephalopathy due to delirium tremens'
Please specify the known or suspected type of the documented encephalopathy:
Toxic metabolic
Metabolic
Other
Use of terms such as suspected, likely, concern for, or probable (associated with a specific diagnosis that is being evaluated, monitored, or treated as if it exists) are acceptable and can be coded in the inpatient setting, when documented at the
time of discharge.
Thank you,
Barb Darling RN, BSN
CDI Specialist
Available via [employer] text
Please use your independent medical judgment in providing your response.
[2023-10-27] MEDS: LUMINAL 64.7999999999999972 MG PO ×2 (16:16→20:41)
--- NOTE | 2023-10-27 16:18 | CM ---
LAWANDA spoke with Priscila from [facility]. Per Priscila, spoke with patient yesterday, is in the process of getting documents needed from patients . CM will continue to check in with Priscila regarding patients insurance status. CM spoke with patients ,
reports if patient is stable for discharge she would like him to return home as they do not have the finances to pay for a hospital stay. CM offered support, reports that Priscila from [facility] will be calling shortly. CM spoke with Dhruv
from [place], will follow patients progress and discuss with Dr. Boateng.
Patient seen bedside, reports he is working with [facility]. PT/OT recommending acute rehab. Patient is interested in going to rehab before returning home. CM will continue to follow for discharge planning needs.
Plan; possible acute rehab, pending [facility]
--- NOTE | 2023-10-27 16:33 | EDCM ---
Patient with Dx Acute metabolic encephalopathy due to delirium tremens. Room air. PT recommends acute rehab. OT recommends acute v skilled rehab. Transferred from IMU to [facility] today.
Per prior CM notes, patient currently without insurance, and referral made to [facility].
Spoke with Jana at [place]; [facility] referral placed in [employer]. [facility] will need to [facility] to determine if patient will qualify for [place]. Physiatry Consult will be needed---> message to Dr Fermin with request.
Plan follow up with [facility] re; ability to accept and follow up after Physiatry Eval.
--- NOTE | 2023-10-27 16:40 | CM ---
Patient with Dx Acute metabolic encephalopathy due to delirium tremens. Room air. PT recommends acute rehab. OT recommends acute v skilled rehab. Transferred from IMU to [facility] today.
Per prior CM notes, patient currently without insurance, and referral made to [facility].
Spoke with Jana at [place]; [facility] referral placed in [employer]. [facility] will need to [facility] at to determine if patient will qualify for [place]. Physiatry Consult will be needed---> message to Dr Fermin with request.
Plan follow up with [facility] re; ability to accept and follow up after Physiatry Eval.
[2023-10-27] MEDS: LIPITOR 40 MG PO (17:12)
[2023-10-27] MEDS: TYLENOL 650 MG PO (20:39)
[2023-10-27] MEDS: VITAMIN B1 100 MG PO (20:41)
[2023-10-28 07:55] VITALS: BP 169/93
[2023-10-28] MEDS: AVAPRO 300 MG PO (08:17)
[2023-10-28] MEDS: BYSTOLIC 10 MG PO (08:18)
[2023-10-28] MEDS: VITAMIN B1 100 MG PO ×2 (08:18→21:00)
[2023-10-28] MEDS: LUMINAL 64.7999999999999972 MG PO ×3 (08:18→21:00)
[2023-10-28] MEDS: MAGNESIUM OXIDE 500 MG PO ×2 (08:18→21:00)
[2023-10-28] MEDS: VITAMIN D3 (cholecalciferol) 125 MCG PO (08:18)
[2023-10-28] MEDS: FOLVITE 1 MG PO (08:19)
[2023-10-28] MEDS: LOVENOX 40 MG SC (08:19)
[2023-10-28 08:20] LABS: Hematocrit 39.6 % (39.0-52.0); Hemoglobin 14.2 g/dL (13.0-18.0); Mean Corp Hgb Conc. 35.9 g/dL (33.0-37.0); Mean Corpuscular Hgb 33.7 pg (27.0-31.0); Mean Corpuscular Volume 94.1 fL (80.0-94.0); Mean Platelet Volume 10.2 fL (7.4-10.4); Platelet Count 106 10^3/uL (130-400); Red Blood Cell Count 4.21 10^6/uL (4.70-6.10); Red Cell Dist. Width 11.9 % (11.5-14.5); White Blood Cell Count 4.1 10^3/uL (4.8-10.8)
--- NOTE | 2023-10-28 08:28 | W.PN.HOSP.TC ---
Addendum entered and electronically signed by Benoit Fermin MD 10/28/23 13:43:
Acute toxic metabolic encephalopathy.
Original Note:
Today's Communication/Plan
-
see bold
Assessment / Plan
Assessment / Plan
Gen: continues to remain NAD, Awake and alert.
Eyes: EOMI, PERRLA, no scleral icterus.
Neck: supple.
CV: RRR, +S1/S2, no m/r/g.
Resp: CTAB, no rales, wheezes, or rhonchi.
Abd: remains +BS, soft, NT, ND
Skin: No rashes.
Neuro: remains CN 2-12 intact, non-focal.
Psych: calm, mildly flat affect
CT brain: No acute intracranial abnormality.
CTA head/neck: No CTA evidence for high-grade stenosis or occlusion of the arterial vasculature in the head or neck.
MRI brain: No MRI evidence for an acute infarct.
MRA neck: Normal noncontrast MRA of the neck.
Acute metabolic encephalopathy due to delirium tremens:
-presented with confusion, L-sided facial droop which occurred while patient was in the hospital waiting room visiting family. Stroke alert was called. Acute CVA was ruled out by MRI brain above.
-Suspect symptoms are due to alcohol withdrawal
-cont MSAS protocol (thiamine/folate/Ativan PRN)
-given a dose of IV phenobarbital then placed on phenobarbital taper.
-was on IVFs, now off
Hypotonic hyponatremia:
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
-serum Osm 258, UOsm 334, Jennifer 140
-samsca 15mg given on 10/26/23
-renal following
Essential hypertension:
-exacerbated by DTs. Cont Avapro/Bystolic.
-start Norvasc 5mg daily
Hypokalemia:
-PO K
FULL/Lovenox
Anticipated Discharge: 24 - 48 hours
Subjective/Interval History
-
Date of Service: October 28, 2023
Denies CP/SOB.
Objective Data
-
Labs:
Laboratory Results
10/28/23
07:20
WBC Pending
Hgb Pending
Hct Pending
Plt Count Pending
Sodium Pending
Potassium Pending
Chloride Pending
Carbon Dioxide Pending
BUN Pending
Creatinine Pending
Glucose Pending
Calcium Pending
Total Bilirubin Pending
AST Pending
ALT Pending
Alkaline Phosphatase Pending
Vital Signs:
Vital Signs
Temp Pulse Resp BP Pulse Ox
98.5 F 64 20 164/70 99
10/27/23 23:52 10/28/23 08:18 10/27/23 23:52 10/28/23 08:18 10/27/23 23:52
I&O
10/27/23 10/28/23 10/29/23
06:59 06:59 06:59
Intake Total 1860 / 1860 480 / 480
Output Total 3750 / 3750 800 / 800
Balance -1890 / -1890 -320 / -320
[2023-10-28 08:49] LABS: ALT (SGPT) 31 U/L (0-50); AST (SGOT) 82 U/L (17-59); Albumin 3.7 g/dl (3.5-5.0); Alkaline Phosphatase 87 U/L (38-126); Blood Urea Nitrogen 8 mg/dl (9-20); Calcium 8.4 mg/dl (8.4-10.2); Carbon Dioxide 27 mmol/L (22-30); Chloride 95 mmol/L (98-107); Estimated Creatinine Clearance > 125 ml/min; Glucose 80 mg/dl (70-99); Potassium 3.2 mmol/L (3.5-5.1); Sodium 128 mmol/L (135-145); Total Protein 6.3 g/dl (6.3-8.2); eGFR > 60.00
--- NOTE | 2023-10-28 09:45 | WOUNDNOTE ---
[facility] RN note: Patient admitted with change in mental status secondary to delirium, tremors. Patient stated he lives with his . Plan is rehab transfer when discharged.
See H&P for complete history.
PMH: neuropathy, ETOH use, HTN.
Wound Location and type/assessment: Patient admitted with: Linear red intact skin sacral/coccyx crease r/t moisture. R great toe and L dorsal 4th toe pinpoint scabbed dry abrasion. Patient developed an upper buttocks faint blanchable red linear
maricruz from bedpan use. He's been having some loose stools.
Appetite: good.
Pressure redistribution devices in place: [employer] Air bed. Patient can turn self in bed.
Plan: Discussed local care with PCT Nimisha and discussed with ALEX Tapia. Air chair cushion given. Heels off bed with pillow. Suggested patient follow up with a firearms expert for toenail cutting (R great toenail long).
Care plan to be updated. Will sign off. Contact if needed.
--- NOTE | 2023-10-28 09:45 | WOUNDNOTE ---
SACRAL/COCCYX/BUTTOCKS
--- NOTE | 2023-10-28 09:46 | WOUNDNOTE ---
SACRAL/BUTTOCKS (Linear maricruz blanchable faint red)
[2023-10-28] MEDS: KLOR-CON 40 MEQ PO (10:33)
[2023-10-28] MEDS: NORVASC 5 MG PO (12:46)
--- NOTE | 2023-10-28 13:33 | W.PN.NEPH.PH ---
Today's Communication / Plan
-
- Na down at 128, continue to monitor
- k repletion
Assessment/Plan
-
IMP:
Acute metabolic encephalopathy due to delirium tremens
Hypotonic hyponatremia
Essential hypertension
Hypokalemia
ETOH abuse
Anemia
Thrombocytopenia
Hypocalcemia
Plan:
A/w AMS, stroke alert but w/u neg
persistent hyponatremia, no previous labs to compare
high ADH state U osmo 334, U na high on NS
suspect multifactorial etiology mainly from ETOH, poor solute intake BUN is only 4
TSH is normal, FR 48 ounces/day
Na 128 today s/p Samsca x1 (125)
replace k as this will imporve Na as well
Vitamin D levels very low --> could consider high dose vitamin D weekly on discharge
restarted regular diet
BP are high with DT, consider clonidine if needed, already on BB
check vit D level for mild hypocalcemia
-
-
Date of Service: October 28, 2023
CC / HPI / ROS
-
Chief Complaint:
hyponatremia
History of Present Illness:
alcohol withdrawal with concern for DTs
Na 125 --> 131 s/p samsca. down to 128 today
Review of Systems:
blood pressures remain elevated, consider clonidine
Labs
-
Labs:
WBC 4.1 10^3/uL (4.8-10.8) L 10/28/23 07:20
RBC 4.21 10^6/uL (4.70-6.10) L 10/28/23 07:20
Hgb 14.2 g/dL (13.0-18.0) 10/28/23 07:20
Hct 39.6 % (39.0-52.0) 10/28/23 07:20
Plt Count 106 10^3/uL (130-400) L 10/28/23 07:20
Sodium 128 mmol/L (135-145) L 10/28/23 07:20
Potassium 3.2 mmol/L (3.5-5.1) L 10/28/23 07:20
Chloride 95 mmol/L (98-107) L 10/28/23 07:20
Carbon Dioxide 27 mmol/L (22-30) 10/28/23 07:20
BUN 8 mg/dl (9-20) L 10/28/23 07:20
Creatinine 0.6 mg/dL (0.7-1.3) L 10/28/23 07:20
eGFR > 60.00 10/28/23 07:20
Glucose 80 mg/dl (70-99) 10/28/23 07:20
Calcium 8.4 mg/dl (8.4-10.2) 10/28/23 07:20
Albumin 3.7 g/dl (3.5-5.0) 10/28/23 07:20
Physical Exam
-
Vital Signs:
Vital Signs
Temp Pulse Resp BP Pulse Ox
97.9 F 66 18 145/72 99
10/28/23 07:55 10/28/23 12:46 10/28/23 07:55 10/28/23 12:46 10/28/23 07:55
Cardiovascular:: Regular rate and rhythm
Respiratory:: Bilateral: CTA
Lung Excursion:: Normal
Abdomen:: Nontender and Soft
Bowel Sounds:: Normal
Extremity Edema:: None: Bilateral:
Castaneda Catheter: No
--- NOTE | 2023-10-28 14:03 | CON.MD ---
Documented by User: Narcisa Hughes PA-C 10/28/23 17:15
Consultation - Medical
-
Referring Provider:
Chief Complaint: weakness LLE, Debility
History of Present Illness: This is 63-year-old male with PMH of (alcohol abuse, essential hypertension, peripheral neuropathy of legs)-presented with confusion, L-sided facial droop which occurred while patient was in the hospital waiting room
visiting family on 10/24/2023.�Stroke alert was called. Acute CVA was ruled out by MRI of the brain without evidence for an acute infarct and noncontrast MRA neck: Normal. -Suspect symptoms are due to alcohol withdrawal and acute metabolic
encephalopathy due to delirium tremens. Patient reports weakness of left lower extremity secondary to knee problem. Has seen [facility] in the past and was told that he needs left knee replacement. He was referred to physical therapy but
was unable to afford it therefore never completed. He uses a cane with ambulation for support. He denies neuropathy of the lower extremities.
CT brain: No acute intracranial abnormality.
CTA head/neck: No CTA evidence for high-grade stenosis or occlusion of the arterial vasculature in the head or neck.
MRI brain: No MRI evidence for an acute infarct.
MRA neck: Normal noncontrast MRA of the neck.
Past Medical History: alcohol abuse, essential hypertension
Procedure History: Reports None
Family History: no contributory
Social History:
Functional Level Premorbidly: Independent with all activities. Uses a cane
Functional Level Currently: Supine to sit, supervision, patient is a little shaky overall with movement. Sit to stand transfer�mod assist, stand to sit�min assist, stand/pivot/sit,�mod assist, patient ambulated 20 feet with rolling walker and mod
assist times 1+ second person for added assistance and line management. Gait is shaky, unsteady, step to gait, lacks heel strike left lower extremity. Grooming�set up, lower extremity self-care�min assist.
Tobacco: Denies
Alcohol: Etoh abuse
Drug use: Denies
Lives with: Family
24-hour assistance available: no
Number of floors: Multi�level
# steps to enter: 0
# steps to second floor: 12 steps if wishes to go to 1st floor. Work has 10-12 steps
Potential First floor set up:yes- basement set-up. No steps
Driving: Yes
Occupation: Works full-time- sells commercial lights
�
Allergies:
Allergy/AdvReac Type Severity Reaction Status Date / Time
No Known Allergies Allergy Unverified 10/24/23 16:50
Review of Systems:
Constitutional: (x) Normal _
Eye: (x) Normal _
Ear/Nose/Throat: (x) Normal _
Respiratory: (x) Normal _
Cardiovascular: (x) HTN
Gastrointestinal: (x) Normal _
Genitourinary: (x) Normal _
Musculoskeletal: (x) debility, off balance,left knee pain
Integumentary: (x) Normal _
Neurologic: (x) Normal _
Psychiatric: (x) DT due to withdraw
Endocrine: (x) Normal _
Hematologic/Lymphatic: (x) Normal _
Allergic/Immunologic: (x) Normal _
Medications:
Active Current Visit Medication List
Category Date Time Status
0.9% Sodium Chloride [Nss (Preservative Free)] Med 10/24/23 21:32 Active
See Protocol IV PRN PRN
Acetaminophen [Tylenol/Feverall] Med 10/24/23 21:32 Active
650 mg RECTAL Q4HPRN PRN
Acetaminophen [Tylenol] Med 10/24/23 21:32 Active
650 mg PO Q4HPRN PRN
Amlodipine [Norvasc] Med 10/28/23 11:00 Active
5 mg PO DAILY
Atorvastatin [Lipitor] Med 10/25/23 18:00 Active
40 mg PO QPM
Cholecalciferol (Vitamin D3) [VITAMIN D3 ( Med 10/28/23 08:00 Active
cholecalciferol)]
125 mcg PO DAILY
Enoxaparin Sodium [Lovenox] Med 10/25/23 13:00 Active
40 mg SC DAILY
FOLic ACID [Folvite] Med 10/25/23 08:00 Active
1 mg PO DAILY
FOLic ACID [Folvite] 1 mg Med 10/24/23 21:32 Active
0.9% Sodium Chloride 50 ml [Nss] 50 ml
IV DAILYPRN
Flush (0.9% Sodium Chloride) [Flush (Nss)] Med 10/24/23 22:00 Active
See Dose Instructions IV PER PROTOCOL
Irbesartan [Avapro] Med 10/25/23 08:00 Active
300 mg PO DAILY
Lorazepam [Ativan] Med 10/24/23 21:32 Active
1 mg IV Q1HPRN PRN
Lorazepam [Ativan] Med 10/24/23 21:32 Active
1 mg PO Q2HPRN PRN
Lorazepam [Ativan] Med 10/24/23 21:32 Active
2 mg IV Q1HPRN PRN
Magnesium Oxide Med 10/27/23 09:00 Active
500 mg PO BID
Metoprolol [Lopressor] Med 10/25/23 00:10 Active
5 mg IV Q4HPRN PRN
Nebivolol HCl [Bystolic] Med 10/25/23 08:00 Active
10 mg PO DAILY
Phenobarbital [Luminal] Med 10/29/23 16:00 Active
32.4 mg PO TID
Phenobarbital [Luminal] Med 10/27/23 16:00 Active
64.8 mg PO TID
Thiamine HCl [Vitamin B1] Med 10/27/23 20:00 Active
100 mg PO BID
Vitals:
Temp Pulse Resp BP Pulse Ox
97.9 F 66 18 145/72 99
10/28/23 07:55 10/28/23 12:46 02/22/24 07:55 10/28/23 12:46 10/28/23 07:55
Height 6 ft
Actual Weight 75.9 kg
Body Mass Index (BMI) 22.7
Physical Exam:
General Appearance/Observation: Well-developed, well-nourished individual in no apparent distress.
Pain/Comfort Assessment: Denies
Mood/Affect: Appropriate
Integumentary/Operative Site:
�� Pressure Ulcer Evaluation: absent over heels. callous bottom of right foot. Very dry and hard skin-bottom of feet
��
�� Other Type of Wound: absent, ecchymosis both arms
��
Eyes: Conjunctiva/Lids: normal ��� Pupils: pupils equal round and reactive to light and Accommodation
Ears/Nose/Throat: oral mucosa moist,� throat clear.������������ Lips/Teeth/Gums: poor dentition. Dry skin, lips
Neck: No muscle spasm or tenderness
Cardiovascular: Heart: regular, no murmur
Pulses: dorsalis pedis 2+ bilaterally
Respiratory: Respiratory Effort/Chest Expansion: normal ������ Auscultation: Clear to auscultation bilaterally
Gastrointestinal: abdomen not tender, no distension, borborygmi and hyperactive abdominal bowel sounds
Genitourinary: Castaneda with yellow urine
Extremities: Edema: None Cyanosis: None Trophic changes: None
Neurology Exam:
Orientation: Alert, Oriented to self, Time, Place
Memory: Intact for immediate medical concerns
Higher cortical function- able to count backward by 3 from 20-0
Repetition: Intact
Comprehension: Intact
Two step command: Intact
Naming: Intact
Cranial Nerves:
�� CNII: Pupillary light reflex: Intact��� Visual Field: Intact
�� CN III, IV, : Extraocular muscles: Intact
�� CN V: Facial Sensation at Forehead: Intact, Maxilla: Intact, Mandible: Intact
�� CN VII: Facial movement: Symmetric
�� CN VIII: Hearing: Normal
�� CN IX/X: Speech & swallow: Normal, Position of Uvula: Midline
�� CN XI: Shoulder shrug: Symmetric
�� CN XII: Tongue protrusion: deviated to the right
Sensory:
�� Light touch: Intact in bilateral upper and lower extremities
��
Reflexes:
�� Biceps: 3+ bilaterally
�� Brachioradialis: 3+ bilaterally
�� Triceps: 3+ bilaterally
�� Patellar: 2+ bilaterally
�� Achilles: 1+ bilaterally
�� Babinski: ? upward going on left
�� Clonus: ? on left. rigidity
�� Greg: Negative bilaterally
Cerebellar: Dysmetria/Ataxia: None
Musculoskeletal:
Motor: (Manual muscle scale 0-5)
Muscle SA EF WE EE FF FA HF KE DF EHL PF
Right� 5 5 5 5 5 5 5 5 5 5 5
Left 5 5 5 5 5 5 4 4 5 5 5
Tone: Normal in all extremities, except increased in Left>right ankle
Range of Motion: Passively within normal limits in all extremities, except diminished full extension of left knee
Lab Results
Labs
WBC 4.1 10^3/uL (4.8-10.8) L 10/28/23 07:20
RBC 4.21 10^6/uL (4.70-6.10) L 10/28/23 07:20
Hgb 14.2 g/dL (13.0-18.0) 10/28/23 07:20
Hct 39.6 % (39.0-52.0) 10/28/23 07:20
MCV 94.1 fL (80.0-94.0) H 10/28/23 07:20
MCH 33.7 pg (27.0-31.0) H 10/28/23 07:20
MCHC 35.9 g/dL (33.0-37.0) 10/28/23 07:20
RDW 11.9 % (11.5-14.5) 10/28/23 07:20
Plt Count 106 10^3/uL (130-400) L 10/28/23 07:20
MPV 10.2 fL (7.4-10.4) 10/28/23 07:20
Abs Immat Gran (auto) 0.0 10^3/uL (0-0.05) 10/25/23 07:54
Absolute Neuts (auto) 2.9 10^3/uL (1.4-6.5) 10/25/23 07:54
Absolute Lymphs (auto) 0.2 10^3/uL (1.2-3.4) L 10/25/23 07:54
Absolute Monos (auto) 0.7 10^3/uL (0.1-0.6) H 10/25/23 07:54
Absolute Eos (auto) 0.0 10^3/uL (0-0.7) 10/25/23 07:54
Absolute Basos (auto) 0.0 10^3/uL (0-0.2) 10/25/23 07:54
Immature Gran % 0.3 % (0-0.5) 10/25/23 07:54
Neutrophils % 76.3 % (42.2-75.2) H 10/25/23 07:54
Lymphocytes % 5.2 % (20.5-51.1) L 10/25/23 07:54
Monocytes % 16.9 % (1.7-9.3) H 10/25/23 07:54
Eosinophils % 0.5 % (0-6) 10/25/23 07:54
Basophils % 0.8 % (0-2) 10/25/23 07:54
Nucleated RBC % 0 % (-) 10/25/23 07:54
PT 13.2 Sec (11.4-14.6) 10/24/23 16:49
INR 1.02 10/24/23 16:49
APTT 27.0 Sec (23.4-35.0) 10/24/23 16:49
Sodium 128 mmol/L (135-145) L 10/28/23 07:20
Potassium 3.2 mmol/L (3.5-5.1) L 10/28/23 07:20
Chloride 95 mmol/L (98-107) L 10/28/23 07:20
Carbon Dioxide 27 mmol/L (22-30) 10/28/23 07:20
BUN 8 mg/dl (9-20) L 10/28/23 07:20
Creatinine 0.6 mg/dL (0.7-1.3) L 10/28/23 07:20
Estimated Creat Clear > 125 ml/min 10/28/23 07:20
eGFR > 60.00 10/28/23 07:20
Glucose 80 mg/dl (70-99) 10/28/23 07:20
Serum Osmolality 258 mOsm/kg (275-300) L 10/25/23 11:48
Calcium 8.4 mg/dl (8.4-10.2) 10/28/23 07:20
Magnesium 1.8 mg/dl (1.6-2.3) 10/26/23 05:04
Total Bilirubin 2.0 mg/dl (0.2-1.3) H 10/28/23 07:20
AST 82 U/L (17-59) H 10/28/23 07:20
ALT 31 U/L (0-50) 10/28/23 07:20
Alkaline Phosphatase 87 U/L (38-126) 10/28/23 07:20
Troponin I < 0.012 ng/ml 10/25/23 11:48
Total Protein 6.3 g/dl (6.3-8.2) 10/28/23 07:20
Albumin 3.7 g/dl (3.5-5.0) 10/28/23 07:20
Triglycerides 42 mg/dl (10-149) 10/25/23 07:54
Total Cholesterol 139 mg/dl (50-199) 10/25/23 07:54
LDL Cholesterol, Calc 24 mg/dl 10/25/23 07:54
VLDL Cholesterol, Calc 8 mg/dl (0-30) 10/25/23 07:54
HDL Cholesterol 107 mg/dl 10/25/23 07:54
Vitamin D 25-Hydroxy 14.4 ng/mL (30-80) L 10/27/23 05:24
TSH (Reflex) 2.04 uIU/ml (0.47-4.68) 10/24/23 18:18
Urine Color Yellow 10/24/23 18:18
Urine Clarity Clear (Clear) 10/24/23 18:18
Urine pH 6.5 (5.0-9.0) 10/24/23 18:18
Ur Specific [place] 1.010 (<1.030) 10/24/23 18:18
Urine Ketones Negative (Negative) 10/24/23 18:18
Ur Occult Blood Reflex Negative (Negative) 10/24/23 18:18
Urine Nitrite (Reflex) Negative (Negative) 10/24/23 18:18
Urine Bilirubin Negative (Negative) 10/24/23 18:18
Urine Urobilinogen Negative (Neg - 1+) 10/24/23 18:18
Leukocyte Esterase Rfl Negative (Negative) 10/24/23 18:18
Urine Osmolality 334 mOsm/kg (300-900) 10/25/23 13:19
Urine Sodium 140 mmol/L (30-90) H 10/25/23 13:19
Urine Glucose Negative (Negative) 10/24/23 18:18
Urine Albumin (Reflex) Trace (Neg - Trace) 10/24/23 18:18
Urine Opiates Screen Negative (Negative) 10/24/23 18:19
Ur Buprenorphine Negative (Negative) 10/24/23 18:19
Ur Oxycodone Screen Negative (Negative) 10/24/23 18:19
Urine Methadone Screen Negative (Negative) 10/24/23 18:19
Ur Barbiturates Screen Negative (Negative) 10/24/23 18:19
Ur Tricyclics Screen Negative (Negative) 10/24/23 18:19
Ur Phencyclidine Scrn Negative (Negative) 10/24/23 18:19
Ur Amphetamines Screen Negative (Negative) 10/24/23 18:19
U Methamphetamines Scrn Negative (Negative) 10/24/23 18:19
U Benzodiazepines Scrn Negative (Negative) 10/24/23 18:19
Urine Cocaine Screen Negative (Negative) 10/24/23 18:19
U Marijuana (THC) Screen Negative (Negative) 10/24/23 18:19
Alcohol, Quantitative 88 mg/dl 10/24/23 18:18
SARS-CoV-2 Antigen Negative (Negative) 10/24/23 17:30
POC Glucose 109 mg/dl (70-99) H 10/24/23 16:47
�
Diagnostic Results: as per HPI
Assessment This is 63-year-old male with PMH of (alcohol abuse, essential hypertension, peripheral neuropathy of legs)-presented with confusion, L-sided facial droop which occurred while patient was in the hospital waiting room visiting family on
10/24/2023.�Stroke alert was called. Acute CVA was ruled out by MRI of the brain without evidence for an acute infarct and noncontrast MRA neck: Normal. -Suspect symptoms are due to alcohol withdrawal and acute metabolic encephalopathy due to
delirium tremens:
Plan
PT/OT to increase independence with ADLs, improve balance, coordination, endurance, strength, mobility, community reintegration, decreased burden of care on others and family education.
Debility:Continue PT/OT for improved endurance.
Acute metabolic encephalopathy due to delirium tremens. Phenobarbital, IV lorazepam, thiamine, magnesium oxide, folic acid 1 mg, Metoprolol IV prn
Essential HTN: -exacerbated by DTs. Cont Avapro 300mg, Bystolic 10mg. Norvasc. monitor closely
Anemia: Likely multifactorial.�Hgb Continue to monitor.
Thrombocytopenia:- 106. Continue to monitor. With platelets less than 50,000 recommend keeping therapies to bedside. If platelets less than 20,000 will use further caution with activity levels and hold therapy for platelets less than 10,000.
Hypokalemia: 3.2. Replenish.
Hyponatremia: Na 128 today s/p Samsca x1 (125). Correction of K+ will help improve. Bun 8, creat-0.6
Psych: Psychology consult.� Monitor mood, adjust medications as needed.
Skin: monitor for pressure sores/rashes/lesions.
FEN: seen by speech therapy. No dysphagia. Regular diet. Aspiration precaution
Diarrhea: Per nursing 5 bowel movements today. Stool culture-negative for C. Difficile
Pain: acetaminophen as needed.
Bowel: Colace and Senna, PRN bisacodyl.
Bladder: Time void, PVRs, PRN straight cath.
Alcohol Abuse: Alcohol cessation education, offering of outpatient alcohol abuse program.
GI Prophylaxis: Pantoprazole
DVT Prophylaxis:
Pulmonary: Incentive spirometry
Safety: Continue to reinforce assistance with all transfers.
Code Status:� Full code
Dispo (date/plan/equipment needs): Home with family care.� Social history reviewed.
Functional and Medical Goals: Modified Independent with ADL�s, ambulation, transfers
Summary of recommendations:
- Discharge Destination: Acute inpatient rehabilitation for PT/OT to increase improve balance, coordination, endurance, strength, mobility, community reintegration, decreased burden of care on others and family education.
Debility: May be a candidate for acute inpatient rehabilitation after completion of detox and acute metabolic encephalopathy treatment protocols.
Left knee pain: Recommend Ortho evaluation of left knee for Possible injection.
Acute metabolic encephalopathy due to delirium tremens. Phenobarbital, IV lorazepam, thiamine, magnesium oxide, folic acid 1 mg, Metoprolol IV prn. All IV medications need to be converted to PO prior to transfer to Rehabilitation
Hypokalemia: 3.2. To replenish. Monitor
Hyponatremia: Na 128 today s/p [place] x1 (125). Correction of K+ will help improve. Fluid restriction
Essential HTN: -exacerbated by DTs. Cont Avapro 300mg, Bystolic 10mg. Norvasc. monitor closely
GI Prophylaxis: Pantoprazole
Alcohol Abuse: Alcohol cessation education, offering of outpatient alcohol abuse program.
Bowel: Colace and Senna, PRN bisacodyl. If constipated.
Thank you for allowing me to care for your patient. Please contact me with any questions or concerns.
This note was dictated using a voice recognition system. Please excuse any typographical errors from credentialing assistant. If you believe there are any discrepancies, please notify our office.

Documented by User: Eliu Boateng MD 10/28/23 19:17
Consultation - Medical
-
Referring Provider: Dr. Benoit Fermin
Chief Complaint: weakness LLE, Debility
History of Present Illness: 63-year-old male with PMH of (alcohol abuse, essential hypertension, peripheral neuropathy of legs)-presented with confusion, L-sided facial droop which occurred while patient was in the hospital waiting room visiting
family on 10/24/2023.�Stroke alert was called. Acute CVA was ruled out by MRI of the brain without evidence for an acute infarct and noncontrast MRA neck: Normal. -Suspect symptoms are due to alcohol withdrawal and acute metabolic encephalopathy due
to delirium tremens. Patient reports pain and weakness of left lower extremity secondary to knee problem. Has seen [facility] in the past and was told that he needs left knee replacement. He was referred to physical therapy but was unable
to afford it therefore never completed. He uses a cane with ambulation for support. He denies neuropathy of the lower extremities.
CT brain: No acute intracranial abnormality.
CTA head/neck: No CTA evidence for high-grade stenosis or occlusion of the arterial vasculature in the head or neck.
MRI brain: No MRI evidence for an acute infarct.
MRA neck: Normal noncontrast MRA of the neck.
Past Medical History: alcohol abuse, essential hypertension, speech stutter
Procedure History: Denies
Family History: Mother with Stroke
Social History:
Functional Level Premorbidly: Independent with all activities. Uses a cane
Functional Level Currently: Supine to sit, supervision, patient is a little shaky overall with movement. Sit to stand transfer�mod assist, stand to sit�min assist, stand/pivot/sit,�mod assist, patient ambulated 20 feet with rolling walker and mod
assist times 1+ second person for added assistance and line management. Gait is shaky, unsteady, step to gait, lacks heel strike left lower extremity. Grooming�set up, lower extremity self-care�min assist.
Tobacco: Denies
Alcohol: Etoh abuse
Drug use: Denies
Lives with: Family
24-hour assistance available: no
Number of floors: Multi�level
# steps to enter: 0
# steps to second floor: 12 steps if wishes to go to 1st floor. Work has 10-12 steps
Potential First floor set up:yes- basement set-up. No steps
Driving: Yes
Occupation: Works full-time- sells commercial lights
�
Allergies:
Allergy/AdvReac Type Severity Reaction Status Date / Time
No Known Allergies Allergy Unverified 10/24/23 16:50
Review of Systems:
Constitutional: (x) Normal _
Eye: (x) Normal _
Ear/Nose/Throat: (x) Normal _
Respiratory: (x) Normal _
Cardiovascular: (x) HTN
Gastrointestinal: (x) Normal _
Genitourinary: (x) Normal _
Musculoskeletal: (x) debility, off balance,left knee pain
Integumentary: (x) Normal _
Neurologic: (x) Normal _
Psychiatric: (x) DT due to withdraw
Endocrine: (x) Normal _
Hematologic/Lymphatic: (x) Normal _
Allergic/Immunologic: (x) Normal _
Medications:
Active Current Visit Medication List
Category Date Time Status
0.9% Sodium Chloride [Nss (Preservative Free)] Med 10/24/23 21:32 Active
See Protocol IV PRN PRN
Acetaminophen [Tylenol/Feverall] Med 10/24/23 21:32 Active
650 mg RECTAL Q4HPRN PRN
Acetaminophen [Tylenol] Med 10/24/23 21:32 Active
650 mg PO Q4HPRN PRN
Amlodipine [Norvasc] Med 10/28/23 11:00 Active
5 mg PO DAILY
Atorvastatin [Lipitor] Med 10/25/23 18:00 Active
40 mg PO QPM
Cholecalciferol (Vitamin D3) [VITAMIN D3 ( Med 10/28/23 08:00 Active
cholecalciferol)]
125 mcg PO DAILY
Enoxaparin Sodium [Lovenox] Med 10/25/23 13:00 Active
40 mg SC DAILY
FOLic ACID [Folvite] Med 10/25/23 08:00 Active
1 mg PO DAILY
FOLic ACID [Folvite] 1 mg Med 10/24/23 21:32 Active
0.9% Sodium Chloride 50 ml [Nss] 50 ml
IV DAILYPRN
Flush (0.9% Sodium Chloride) [Flush (Nss)] Med 10/24/23 22:00 Active
See Dose Instructions IV PER PROTOCOL
Irbesartan [Avapro] Med 10/25/23 08:00 Active
300 mg PO DAILY
Lorazepam [Ativan] Med 10/24/23 21:32 Active
1 mg IV Q1HPRN PRN
Lorazepam [Ativan] Med 10/24/23 21:32 Active
1 mg PO Q2HPRN PRN
Lorazepam [Ativan] Med 10/24/23 21:32 Active
2 mg IV Q1HPRN PRN
Magnesium Oxide Med 10/27/23 09:00 Active
500 mg PO BID
Metoprolol [Lopressor] Med 10/25/23 00:10 Active
5 mg IV Q4HPRN PRN
Nebivolol HCl [Bystolic] Med 10/25/23 08:00 Active
10 mg PO DAILY
Phenobarbital [Luminal] Med 10/29/23 16:00 Active
32.4 mg PO TID
Phenobarbital [Luminal] Med 10/27/23 16:00 Active
64.8 mg PO TID
Thiamine HCl [Vitamin B1] Med 10/27/23 20:00 Active
100 mg PO BID
Vitals:
Temp Pulse Resp BP Pulse Ox
97.9 F 66 18 145/72 99
10/28/23 07:55 10/28/23 12:46 10/28/23 07:55 10/28/23 12:46 10/28/23 07:55
Height 6 ft
Actual Weight 75.9 kg
Body Mass Index (BMI) 22.7
Physical Exam:
General Appearance/Observation: Well-developed, well-nourished male in no apparent distress.
Pain/Comfort Assessment: Denies
Mood/Affect: Appropriate
Integumentary/Operative Site:
�� Pressure Ulcer Evaluation: absent over heels. callous bottom of right foot. Very dry and hard skin-bottom of feet
�� Other Type of Wound: ecchymosis both arms
Eyes: Conjunctiva/Lids: normal ��� Pupils: pupils equal round and reactive to light and Accommodation
Ears/Nose/Throat: oral mucosa moist,� throat clear.������������ Lips/Teeth/Gums: poor dentition. Dry skin, lips
Neck: No muscle spasm or tenderness
Cardiovascular: Heart: regular, no murmur
Pulses: dorsalis pedis 2+ bilaterally
Respiratory: Respiratory Effort/Chest Expansion: normal ������ Auscultation: Clear to auscultation bilaterally
Gastrointestinal: abdomen not tender, no distension, borborygmi and hyperactive abdominal bowel sounds
Genitourinary: Castaneda with yellow urine
Extremities: Edema: None Cyanosis: None Trophic changes: None
Neurology Exam:
Orientation: Alert, Oriented to self, Time, Place
Memory: Intact for immediate medical concerns
Higher cortical function- able to count backward by 3 from 20-0
Repetition: Intact
Comprehension: Intact
Two step command: Intact
Naming: Intact
Cranial Nerves:
�� CNII: Pupillary light reflex: Intact��� Visual Field: Intact
�� CN III, IV, : Extraocular muscles: Intact
�� CN V: Facial Sensation at Forehead: Intact, Maxilla: Intact, Mandible: Intact
�� CN VII: Facial movement: Symmetric
�� CN VIII: Hearing: Normal
�� CN IX/X: Speech & swallow: Normal, Position of Uvula: Midline
�� CN XI: Shoulder shrug: Symmetric
�� CN XII: Tongue protrusion: deviated to the right
Sensory:
�� Light touch: Intact in bilateral upper and lower extremities
��
Reflexes:
�� Biceps: 3+ bilaterally
�� Brachioradialis: 3+ bilaterally
�� Triceps: 3+ bilaterally
�� Patellar: 3+ bilaterally
�� Achilles: 2+ bilaterally
�� Babinski: Neutral bilaterally
�� Clonus: None
�� Greg: Negative bilaterally
Cerebellar: Dysmetria/Ataxia: None
Musculoskeletal: Motor: (Manual muscle scale 0-5)
Muscle SA EF WE EE FF FA HF KE DF EHL PF
Right� 5 5 5 5 5 5 5 5 5 5 5
Left 5 5 5 5 5 5 4 5 5 5 5
Tone: Normal in all extremities
Range of Motion: Passively within normal limits in all extremities, except diminished full extension of left knee
Lab Results
Labs
WBC 4.1 10^3/uL (4.8-10.8) L 10/28/23 07:20
RBC 4.21 10^6/uL (4.70-6.10) L 10/28/23 07:20
Hgb 14.2 g/dL (13.0-18.0) 10/28/23 07:20
Hct 39.6 % (39.0-52.0) 10/28/23 07:20
MCV 94.1 fL (80.0-94.0) H 10/28/23 07:20
MCH 33.7 pg (27.0-31.0) H 10/28/23 07:20
MCHC 35.9 g/dL (33.0-37.0) 10/28/23 07:20
RDW 11.9 % (11.5-14.5) 10/28/23 07:20
Plt Count 106 10^3/uL (130-400) L 10/28/23 07:20
MPV 10.2 fL (7.4-10.4) 10/28/23 07:20
Abs Immat Gran (auto) 0.0 10^3/uL (0-0.05) 10/25/23 07:54
Absolute Neuts (auto) 2.9 10^3/uL (1.4-6.5) 10/25/23 07:54
Absolute Lymphs (auto) 0.2 10^3/uL (1.2-3.4) L 10/25/23 07:54
Absolute Monos (auto) 0.7 10^3/uL (0.1-0.6) H 10/25/23 07:54
Absolute Eos (auto) 0.0 10^3/uL (0-0.7) 10/25/23 07:54
Absolute Basos (auto) 0.0 10^3/uL (0-0.2) 10/25/23 07:54
Immature Gran % 0.3 % (0-0.5) 10/25/23 07:54
Neutrophils % 76.3 % (42.2-75.2) H 10/25/23 07:54
Lymphocytes % 5.2 % (20.5-51.1) L 10/25/23 07:54
Monocytes % 16.9 % (1.7-9.3) H 10/25/23 07:54
Eosinophils % 0.5 % (0-6) 10/25/23 07:54
Basophils % 0.8 % (0-2) 10/25/23 07:54
Nucleated RBC % 0 % (-) 10/25/23 07:54
PT 13.2 Sec (11.4-14.6) 10/24/23 16:49
INR 1.02 10/24/23 16:49
APTT 27.0 Sec (23.4-35.0) 10/24/23 16:49
Sodium 128 mmol/L (135-145) L 10/28/23 07:20
Potassium 3.2 mmol/L (3.5-5.1) L 10/28/23 07:20
Chloride 95 mmol/L (98-107) L 10/28/23 07:20
Carbon Dioxide 27 mmol/L (22-30) 10/28/23 07:20
BUN 8 mg/dl (9-20) L 10/28/23 07:20
Creatinine 0.6 mg/dL (0.7-1.3) L 10/28/23 07:20
Estimated Creat Clear > 125 ml/min 10/28/23 07:20
eGFR > 60.00 10/28/23 07:20
Glucose 80 mg/dl (70-99) 10/28/23 07:20
Serum Osmolality 258 mOsm/kg (275-300) L 10/25/23 11:48
Calcium 8.4 mg/dl (8.4-10.2) 10/28/23 07:20
Magnesium 1.8 mg/dl (1.6-2.3) 10/26/23 05:04
Total Bilirubin 2.0 mg/dl (0.2-1.3) H 10/28/23 07:20
AST 82 U/L (17-59) H 10/28/23 07:20
ALT 31 U/L (0-50) 10/28/23 07:20
Alkaline Phosphatase 87 U/L (38-126) 10/28/23 07:20
Troponin I < 0.012 ng/ml 10/25/23 11:48
Total Protein 6.3 g/dl (6.3-8.2) 10/28/23 07:20
Albumin 3.7 g/dl (3.5-5.0) 10/28/23 07:20
Triglycerides 42 mg/dl (10-149) 10/25/23 07:54
Total Cholesterol 139 mg/dl (50-199) 10/25/23 07:54
LDL Cholesterol, Calc 24 mg/dl 10/25/23 07:54
VLDL Cholesterol, Calc 8 mg/dl (0-30) 10/25/23 07:54
HDL Cholesterol 107 mg/dl 10/25/23 07:54
Vitamin D 25-Hydroxy 14.4 ng/mL (30-80) L 10/27/23 05:24
TSH (Reflex) 2.04 uIU/ml (0.47-4.68) 10/24/23 18:18
Urine Color Yellow 10/24/23 18:18
Urine Clarity Clear (Clear) 10/24/23 18:18
Urine pH 6.5 (5.0-9.0) 10/24/23 18:18
Ur Specific [place] 1.010 (<1.030) 10/24/23 18:18
Urine Ketones Negative (Negative) 10/24/23 18:18
Ur Occult Blood Reflex Negative (Negative) 10/24/23 18:18
Urine Nitrite (Reflex) Negative (Negative) 10/24/23 18:18
Urine Bilirubin Negative (Negative) 10/24/23 18:18
Urine Urobilinogen Negative (Neg - 1+) 10/24/23 18:18
Leukocyte Esterase Rfl Negative (Negative) 10/24/23 18:18
Urine Osmolality 334 mOsm/kg (300-900) 10/25/23 13:19
Urine Sodium 140 mmol/L (30-90) H 10/25/23 13:19
Urine Glucose Negative (Negative) 10/24/23 18:18
Urine Albumin (Reflex) Trace (Neg - Trace) 10/24/23 18:18
Urine Opiates Screen Negative (Negative) 10/24/23 18:19
Ur Buprenorphine Negative (Negative) 10/24/23 18:19
Ur Oxycodone Screen Negative (Negative) 10/24/23 18:19
Urine Methadone Screen Negative (Negative) 10/24/23 18:19
Ur Barbiturates Screen Negative (Negative) 10/24/23 18:19
Ur Tricyclics Screen Negative (Negative) 10/24/23 18:19
Ur Phencyclidine Scrn Negative (Negative) 10/24/23 18:19
Ur Amphetamines Screen Negative (Negative) 10/24/23 18:19
U Methamphetamines Scrn Negative (Negative) 10/24/23 18:19
U Benzodiazepines Scrn Negative (Negative) 10/24/23 18:19
Urine Cocaine Screen Negative (Negative) 10/24/23 18:19
U Marijuana (THC) Screen Negative (Negative) 10/24/23 18:19
Alcohol, Quantitative 88 mg/dl 10/24/23 18:18
SARS-CoV-2 Antigen Negative (Negative) 10/24/23 17:30
POC Glucose 109 mg/dl (70-99) H 10/24/23 16:47
�
Diagnostic Results: as per HPI
Assessment
63-year-old M H (alcohol abuse, essential hypertension, peripheral neuropathy of legs)-presented with confusion, L-sided facial droop with negative MRI, thought do to alcohol withdrawal and acute metabolic encephalopathy due to delirium tremens
with ADL and ambulatory dysfunction
Plan
PT/OT to increase independence with ADLs, improve balance, coordination, endurance, strength, mobility, community reintegration, decreased burden of care on others and family education.
Debility:Continue PT/OT for improved endurance.
Acute metabolic encephalopathy due to delirium tremens. Phenobarbital, IV lorazepam, thiamine, magnesium oxide, folic acid 1 mg, Metoprolol IV prn
Left knee pain: Recommend Ortho evaluation of left knee for Possible injection.
Essential HTN: -exacerbated by DTs. Cont Avapro 300mg, Bystolic 10mg. Norvasc. monitor closely
Anemia: Likely multifactorial.�Hgb Continue to monitor.
Thrombocytopenia:- 106. Continue to monitor. With platelets less than 50,000 recommend keeping therapies to bedside. If platelets less than 20,000 will use further caution with activity levels and hold therapy for platelets less than 10,000.
Hypokalemia: 3.2. Received potassium supplements, continue to monitor.
Hyponatremia: Na 128 today s/p Samsca x1 (125). Correction of K+ will help improve. Bun 8, creat-0.6
Psych: Psychology consult.� Monitor mood, adjust medications as needed.
Skin: monitor for pressure sores/rashes/lesions.
FEN: seen by speech therapy. No dysphagia. Regular diet. Aspiration precaution
Diarrhea: Per nursing 5 bowel movements today. Stool culture-negative for C. Difficile
Pain: acetaminophen as needed.
Bowel: Colace and Senna, PRN bisacodyl.
Bladder: Time void, PVRs, PRN straight cath.
Alcohol Abuse: Alcohol cessation education, offering of outpatient alcohol abuse program.
GI Prophylaxis: Pantoprazole
DVT Prophylaxis: Mechanical and Lovenox
Pulmonary: Incentive spirometry
Safety: Continue to reinforce assistance with all transfers.
Code Status:� Full code
Dispo (date/plan/equipment needs): Home with family care.� Social history reviewed.
Functional and Medical Goals: Modified Independent with ADL�s, ambulation, transfers
Summary of recommendations:
- Discharge Destination: Acute inpatient rehabilitation for PT/OT to increase improve balance, coordination, endurance, strength, mobility, community reintegration, decreased burden of care on others and family education.
Debility: May be a candidate for acute inpatient rehabilitation after completion of detox and acute metabolic encephalopathy treatment protocols.
Left knee pain: Recommend Ortho evaluation of left knee for Possible injection.
Acute metabolic encephalopathy thought secondary to delirium tremens. Phenobarbital, IV lorazepam, thiamine, magnesium oxide, folic acid 1 mg, Metoprolol IV prn. All IV medications need to be converted to PO prior to transfer to Rehabilitation
Hypokalemia: Repleted, continue to monitor and adjust.
Hyponatremia: Na 128 today s/p Samsca x1 (125). Correction of K+ will help improve. Fluid restriction
Essential HTN: -exacerbated by DTs. Avapro 300mg, Bystolic 10mg. Norvasc. monitor closely
GI Prophylaxis: Pantoprazole
Alcohol Abuse: Alcohol cessation education, offering of outpatient alcohol abuse program.
Bowel: Colace and Senna, PRN bisacodyl. If constipated.
Thank you for allowing me to care for your patient. Please contact me with any questions or concerns.
This note was dictated using a voice recognition system. Please excuse any typographical errors from credentialing assistant. If you believe there are any discrepancies, please notify our office.
[2023-10-28 15:29] VITALS: BP 170/100
--- NOTE | 2023-10-28 15:31 | CM ---
Patient seen bedside, inquiring about the status of his insurance. CM spoke with Priscila from [facility], received patients employee verification form, waiting on separation papers from patients , along with patients SS and Certificate. Priscila
reports she has spoken with patients several times today and has emailed her the documents needed, will email her again. Patient still interested in going to [place]. CM will continue to follow for discharge planning needs.
Plan; [facility] pending PMR consult, awaiting [facility] status.
--- NOTE | 2023-10-28 16:26 | PTCARENOTE ---
Patient with five episodes of loose stools today. Yellow in color. Stool sent for CDiff - negative.
[2023-10-28] MEDS: LIPITOR 40 MG PO (18:10)
[2023-10-28] MEDS: TYLENOL 650 MG PO (21:00)
[2023-10-29 00:12] VITALS: BP 134/82
[2023-10-29 06:00] VITALS: BMI 23.2
[2023-10-29 07:55] VITALS: BP 174/97
[2023-10-29] MEDS: LOVENOX 40 MG SC (08:58)
[2023-10-29] MEDS: AVAPRO 300 MG PO (09:03)
[2023-10-29] MEDS: LUMINAL 64.7999999999999972 MG PO (09:04)
[2023-10-29] MEDS: VITAMIN D3 (cholecalciferol) 125 MCG PO (09:04)
[2023-10-29] MEDS: VITAMIN B1 100 MG PO ×2 (09:04→20:56)
[2023-10-29] MEDS: MAGNESIUM OXIDE 500 MG PO ×2 (09:04→20:56)
[2023-10-29] MEDS: TYLENOL 650 MG PO (09:04)
[2023-10-29] MEDS: BYSTOLIC 10 MG PO (09:05)
[2023-10-29] MEDS: DESENEX/MITRAZOL/ZEASORB 1 APPLIC TOPICAL ×2 (09:05→21:02)
[2023-10-29] MEDS: NORVASC 5 MG PO (09:06)
[2023-10-29] MEDS: FOLVITE 1 MG PO (09:07)
[2023-10-29 09:55] VITALS: BP 162/80; PULSE 70; O2SAT 99
--- NOTE | 2023-10-29 10:21 | W.PN.HOSP.TC ---
Today's Communication/Plan
-
timing of discharge depends on today's labs
Assessment / Plan
Assessment / Plan
Gen: NAD, Awake and alert.
Eyes: remains EOMI, PERRLA, no scleral icterus.
Neck: supple.
CV: remains RRR, +S1/S2, no m/r/g.
Resp: CTAB, no rales, wheezes, or rhonchi.
Abd: continues to remain +BS, soft, NT, ND
Skin: No rashes.
Neuro: remains CN 2-12 intact, non-focal.
Psych: calm, mildly flat affect
CT brain: No acute intracranial abnormality.
CTA head/neck: No CTA evidence for high-grade stenosis or occlusion of the arterial vasculature in the head or neck.
MRI brain: No MRI evidence for an acute infarct.
MRA neck: Normal noncontrast MRA of the neck.
Acute metabolic encephalopathy due to delirium tremens:
-presented with confusion, L-sided facial droop which occurred while patient was in the hospital waiting room visiting family. Stroke alert was called. Acute CVA was ruled out by MRI brain above.
-Suspect symptoms are due to alcohol withdrawal
-cont MSAS protocol (thiamine/folate/Ativan PRN)
-given a dose of IV phenobarbital then placed on phenobarbital taper, cont.
-was on IVFs, now off
Hypotonic hyponatremia:
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
-serum Osm 258, UOsm 334, Jennifer 140
-samsca 15mg given on 10/26/23
-renal following
Essential hypertension:
-exacerbated by DTs. Cont Avapro/Bystolic.
-Norvasc 5mg daily started 10/28/23
Hypokalemia:
-s/p PO K
FULL/Lovenox
Anticipated Discharge: Within 24 hours
Subjective/Interval History
-
Date of Service: October 29, 2023
Denies CP/SOB.
Objective Data
-
Vital Signs:
Vital Signs
Temp Pulse Resp BP Pulse Ox
97.7 F 54 18 134/84 100
10/29/23 07:55 10/29/23 09:06 10/29/23 07:55 10/29/23 09:06 10/29/23 07:55
I&O
10/28/23 10/29/23 10/30/23
06:59 06:59 06:59
Intake Total 480 / 480 1200 / 1200
Output Total 800 / 800 2250 / 2250
Balance -320 / -320 -1050 / -1050
[2023-10-29 10:52] LABS: Hematocrit 42.5 % (39.0-52.0); Hemoglobin 15.2 g/dL (13.0-18.0); Mean Corp Hgb Conc. 35.8 g/dL (33.0-37.0); Mean Corpuscular Hgb 33.9 pg (27.0-31.0); Mean Corpuscular Volume 94.9 fL (80.0-94.0); Mean Platelet Volume 9.8 fL (7.4-10.4); Platelet Count 143 10^3/uL (130-400); Red Blood Cell Count 4.48 10^6/uL (4.70-6.10); Red Cell Dist. Width 11.9 % (11.5-14.5); White Blood Cell Count 3.8 10^3/uL (4.8-10.8)
[2023-10-29 11:07] LABS: Blood Urea Nitrogen 11 mg/dl (9-20); Calcium 8.6 mg/dl (8.4-10.2); Carbon Dioxide 27 mmol/L (22-30); Chloride 93 mmol/L (98-107); Estimated Creatinine Clearance 117 ml/min; Glucose 135 mg/dl (70-99); Potassium 3.5 mmol/L (3.5-5.1); Sodium 128 mmol/L (135-145); eGFR > 60.00
[2023-10-29 11:08] VITALS: BP 162/88; PULSE 68; O2SAT 99
--- NOTE | 2023-10-29 12:11 | CM ---
Addendum entered by Cata Justice 10/29/23 15:03:
CM spoke with Ade from [facility] [phone]. Per Ade, based on the patients demographics, he should qualify for [facility]. [facility] made aware, Dhruv from [facility] calling admissions department to discuss.
Original Note:
CM left voicemail to Priscila at [facility] regarding patients insurance status. Per PM&R consult, recommending Acute Rehab. Patient seen bedside, reports he would like to go [facility], also reports he is very eager to return home. Patient reports he feels in a
day or two he will be steadier, does not feel at this time he could return home. Patient reports he lives in the basement, when asked how many steps to get into the basement, patient reports he can enter through the garage and there are no steps.
Patient reports he does live with his spouse but they are living separately. Per Dhruv at [facility], will need hospital [facility] to communicate with [facility] that patient will be approved. CM will continue to follow for discharge planning needs.
Plan; [facility] pending [facility] approval.
--- NOTE | 2023-10-29 15:24 | W.PN.NEPH.PH ---
Today's Communication / Plan
-
samsca
Assessment/Plan
-
IMP:
Acute metabolic encephalopathy due to delirium tremens
Hypotonic hyponatremia
Essential hypertension
Hypokalemia
ETOH abuse
Anemia
Thrombocytopenia
Hypocalcemia
Plan:
A/w AMS, stroke alert but w/u neg
persistent hyponatremia, no previous labs to compare
high ADH state U osmo 334, U na high on NS
suspect multifactorial etiology mainly from ETOH, poor solute intake BUN is only 4
TSH is normal, FR 48 ounces/day
Na 128 today will dose samsca again
may need lasix 20mg 3xweekly if sodium drops out pt
Vitamin D levels very low --> could consider high dose vitamin D weekly on discharge
BP are stable
BMP in 3days after d/c f/u with PCP
-
-
Date of Service: October 29, 2023
CC / HPI / ROS
-
Chief Complaint:
hyponatremia
History of Present Illness:
alcohol withdrawal with concern for DTs
Na 125 --> 131 s/p samsca. no change in sodium at 128
BP stable
Review of Systems:
no cp or sob
feels well
Labs
-
Labs:
WBC 3.8 10^3/uL (4.8-10.8) L 10/29/23 10:34
RBC 4.48 10^6/uL (4.70-6.10) L 10/29/23 10:34
Hgb 15.2 g/dL (13.0-18.0) 10/29/23 10:34
Hct 42.5 % (39.0-52.0) 10/29/23 10:34
Plt Count 143 10^3/uL (130-400) D 10/29/23 10:34
Sodium 128 mmol/L (135-145) L 10/29/23 10:34
Potassium 3.5 mmol/L (3.5-5.1) 10/29/23 10:34
Chloride 93 mmol/L (98-107) L 10/29/23 10:34
Carbon Dioxide 27 mmol/L (22-30) 10/29/23 10:34
BUN 11 mg/dl (9-20) 10/29/23 10:34
Creatinine 0.7 mg/dL (0.7-1.3) 10/29/23 10:34
eGFR > 60.00 10/29/23 10:34
Glucose 135 mg/dl (70-99) H 10/29/23 10:34
Calcium 8.6 mg/dl (8.4-10.2) 10/29/23 10:34
Albumin 3.7 g/dl (3.5-5.0) 10/28/23 07:20
Physical Exam
-
Vital Signs:
Vital Signs
Temp Pulse Resp BP Pulse Ox
97.7 F 54 18 134/84 100
10/29/23 07:55 10/29/23 09:06 10/29/23 07:55 10/29/23 09:06 10/29/23 07:55
Cardiovascular:: Regular rate and rhythm
Respiratory:: Bilateral: CTA
Lung Excursion:: Normal
Abdomen:: Nontender and Soft
Extremity Edema:: None: Bilateral:
Castaneda Catheter: No
[2023-10-29 15:31] VITALS: BP 149/86
[2023-10-29] MEDS: LUMINAL 32.3999999999999986 MG PO ×2 (16:24→20:57)
[2023-10-29] MEDS: SAMSCA 15 MG PO (16:25)
[2023-10-29] MEDS: LIPITOR 40 MG PO (17:37)
[2023-10-29 23:06] VITALS: BP 162/91
[2023-10-30 07:15] VITALS: BP 173/97
[2023-10-30 07:35] LABS: Hematocrit 40.7 % (39.0-52.0); Hemoglobin 14.4 g/dL (13.0-18.0); Mean Corp Hgb Conc. 35.4 g/dL (33.0-37.0); Mean Corpuscular Hgb 33.5 pg (27.0-31.0); Mean Corpuscular Volume 94.7 fL (80.0-94.0); Mean Platelet Volume 10.1 fL (7.4-10.4); Platelet Count 142 10^3/uL (130-400); White Blood Cell Count 3.9 10^3/uL (4.8-10.8)
[2023-10-30 07:58] LABS: Blood Urea Nitrogen 11 mg/dl (9-20); Calcium 8.5 mg/dl (8.4-10.2); Carbon Dioxide 28 mmol/L (22-30); Chloride 97 mmol/L (98-107); Estimated Creatinine Clearance 117 ml/min; Glucose 91 mg/dl (70-99); Potassium 3.6 mmol/L (3.5-5.1); Sodium 133 mmol/L (135-145); eGFR > 60.00
[2023-10-30] MEDS: TYLENOL 650 MG PO (08:40)
[2023-10-30] MEDS: VITAMIN D3 (cholecalciferol) 125 MCG PO (08:40)
[2023-10-30] MEDS: AVAPRO 300 MG PO (08:40)
[2023-10-30] MEDS: MAGNESIUM OXIDE 500 MG PO ×2 (08:40→21:25)
[2023-10-30] MEDS: FOLVITE 1 MG PO (08:40)
[2023-10-30] MEDS: NORVASC 5 MG PO (08:40)
[2023-10-30] MEDS: LOVENOX 40 MG SC (08:41)
[2023-10-30] MEDS: LUMINAL 32.3999999999999986 MG PO ×3 (08:41→21:25)
[2023-10-30] MEDS: DESENEX/MITRAZOL/ZEASORB 1 APPLIC TOPICAL ×2 (08:41→21:26)
[2023-10-30] MEDS: VITAMIN B1 100 MG PO ×2 (08:41→21:26)
[2023-10-30] MEDS: BYSTOLIC 10 MG PO (08:41)
--- NOTE | 2023-10-30 09:47 | W.PN.HOSP.TC ---
Today's Communication/Plan
-
see bold
Assessment / Plan
Assessment / Plan
Gen: NAD, Awake and alert.
Eyes: remains EOMI, PERRLA, no scleral icterus.
Neck: supple.
CV: continues to remain RRR, +S1/S2, no m/r/g.
Resp: remains CTAB, no rales, wheezes, or rhonchi.
Abd: +BS, soft, NT, ND
Skin: No rashes.
Neuro: continues to remain CN 2-12 intact, non-focal.
Psych: calm, mildly flat affect
CT brain: No acute intracranial abnormality.
CTA head/neck: No CTA evidence for high-grade stenosis or occlusion of the arterial vasculature in the head or neck.
MRI brain: No MRI evidence for an acute infarct.
MRA neck: Normal noncontrast MRA of the neck.
Acute metabolic encephalopathy due to delirium tremens:
-presented with confusion, L-sided facial droop which occurred while patient was in the hospital waiting room visiting family. Stroke alert was called. Acute CVA was ruled out by MRI brain above.
-Suspect symptoms are due to alcohol withdrawal
-cont MSAS protocol (thiamine/folate/Ativan PRN)
-given a dose of IV phenobarbital then placed on phenobarbital taper, cont.
-was on IVFs, now off
Hypotonic hyponatremia:
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
-serum Osm 258, UOsm 334, Jennifer 140
-samsca 15mg given on 10/26/23 and 10/29/23
-renal following
Essential hypertension:
-exacerbated by DTs. Cont Avapro/Bystolic.
-Norvasc 5mg daily started 10/28/23
Hypokalemia, resolved
FULL/Lovenox
Medically stable for discharge. Case management aware.
Anticipated Discharge: Today
Subjective/Interval History
-
Date of Service: October 30, 2023
No new complaints.
Objective Data
-
Labs:
Laboratory Results
10/30/23
06:43
WBC 3.9 L
Hgb 14.4
Hct 40.7
Plt Count 142
Sodium 133 L
Potassium 3.6
Chloride 97 L
Carbon Dioxide 28
BUN 11
Creatinine 0.7
Glucose 91
Calcium 8.5
Vital Signs:
Vital Signs
Temp Pulse Resp BP Pulse Ox
97.9 F 64 16 173/97 100
10/30/23 07:15 10/30/23 08:40 10/30/23 07:15 10/30/23 08:40 10/30/23 07:15
I&O
10/29/23 10/30/23 10/31/23
06:59 06:59 06:59
Intake Total 1200 / 1200 1800 / 1800
Output Total 2250 / 2250 2350 / 2350
Balance -1050 / -1050 -550 / -550
[2023-10-30 15:31] VITALS: BP 149/92
--- NOTE | 2023-10-30 15:43 | W.PN.NEPH.PH ---
Today's Communication / Plan
-
FR, follow labs
Assessment/Plan
-
IMP:
Acute metabolic encephalopathy due to delirium tremens
Hypotonic hyponatremia
Essential hypertension
Hypokalemia
ETOH abuse
Anemia
Thrombocytopenia
Hypocalcemia
Plan:
A/w AMS, stroke alert but w/u neg
persistent hyponatremia, no previous labs to compare
high ADH state U osmo 334, U na high on NS
suspect multifactorial etiology mainly from ETOH, poor solute intake
TSH is normal, FR 48 ounces/day
Na better post samsca 10/29
may need lasix 20mg 3xweekly if sodium drops out pt
Vitamin D levels very low --> could consider high dose vitamin D weekly on discharge
BP are stable
BMP in 3days after d/c f/u with PCP
-
-
Date of Service: October 30, 2023
CC / HPI / ROS
-
Chief Complaint:
hyponatremia
History of Present Illness:
Na better at 133 s/p samsca.
BP stable
no fever
Review of Systems:
no cp or sob
feels well
Labs
-
Labs:
WBC 3.9 10^3/uL (4.8-10.8) L 10/30/23 06:43
RBC 4.30 10^6/uL (4.70-6.10) L 10/30/23 06:43
Hgb 14.4 g/dL (13.0-18.0) 10/30/23 06:43
Hct 40.7 % (39.0-52.0) 10/30/23 06:43
Plt Count 142 10^3/uL (130-400) 10/30/23 06:43
Sodium 133 mmol/L (135-145) L 10/30/23 06:43
Potassium 3.6 mmol/L (3.5-5.1) 10/30/23 06:43
Chloride 97 mmol/L (98-107) L 10/30/23 06:43
Carbon Dioxide 28 mmol/L (22-30) 10/30/23 06:43
BUN 11 mg/dl (9-20) 10/30/23 06:43
Creatinine 0.7 mg/dL (0.7-1.3) 10/30/23 06:43
eGFR > 60.00 10/30/23 06:43
Glucose 91 mg/dl (70-99) 10/30/23 06:43
Calcium 8.5 mg/dl (8.4-10.2) 10/30/23 06:43
Albumin 3.7 g/dl (3.5-5.0) 10/28/23 07:20
Physical Exam
-
Vital Signs:
Vital Signs
Temp Pulse Resp BP Pulse Ox
97.5 F 65 18 149/92 99
10/30/23 15:31 10/30/23 15:31 10/30/23 15:31 10/30/23 15:31 10/30/23 15:31
Cardiovascular:: Regular rate and rhythm
Respiratory:: Bilateral: CTA
Lung Excursion:: Normal
Abdomen:: Nontender and Soft
Extremity Edema:: None: Bilateral:
Castaneda Catheter: No
[2023-10-30] MEDS: LIPITOR 40 MG PO (17:22)
[2023-10-30 23:54] VITALS: BP 142/85
[2023-10-31 07:43] LABS: Hematocrit 39.4 % (39.0-52.0); Mean Corp Hgb Conc. 35.5 g/dL (33.0-37.0); Mean Corpuscular Hgb 33.4 pg (27.0-31.0); Mean Platelet Volume 9.5 fL (7.4-10.4); Platelet Count 147 10^3/uL (130-400); Red Blood Cell Count 4.19 10^6/uL (4.70-6.10); Red Cell Dist. Width 11.9 % (11.5-14.5); White Blood Cell Count 4.1 10^3/uL (4.8-10.8)
[2023-10-31 07:56] VITALS: BP 176/91
[2023-10-31 08:10] LABS: Blood Urea Nitrogen 9 mg/dl (9-20); Calcium 8.7 mg/dl (8.4-10.2); Carbon Dioxide 30 mmol/L (22-30); Chloride 94 mmol/L (98-107); Estimated Creatinine Clearance 102 ml/min; Glucose 93 mg/dl (70-99); Potassium 3.5 mmol/L (3.5-5.1); Sodium 130 mmol/L (135-145); eGFR > 60.00
[2023-10-31] MEDS: AVAPRO 300 MG PO (10:09)
[2023-10-31] MEDS: DESENEX/MITRAZOL/ZEASORB 1 APPLIC TOPICAL ×2 (10:09→19:51)
[2023-10-31] MEDS: VITAMIN B1 100 MG PO ×2 (10:09→20:10)
[2023-10-31] MEDS: FOLVITE 1 MG PO (10:09)
[2023-10-31] MEDS: LUMINAL 32.3999999999999986 MG PO (10:09)
[2023-10-31] MEDS: MAGNESIUM OXIDE 500 MG PO ×2 (10:09→20:10)
[2023-10-31] MEDS: VITAMIN D3 (cholecalciferol) 125 MCG PO (10:10)
[2023-10-31] MEDS: LOVENOX 40 MG SC (10:10)
[2023-10-31] MEDS: BYSTOLIC 10 MG PO (10:10)
[2023-10-31] MEDS: NORVASC 5 MG PO (10:10)
--- NOTE | 2023-10-31 10:24 | CM ---
Spoke with Jana [facility] she said family needs to provide financial to pursue [facility].
Spoke with dgt Era and Sonia ( ) [phone] Sonia said she will provide any information she can so he can be accepted to [facility] .
LM with Ashley [facility] to call she will provide information needed.
will continue to assess and assist with dc planning.
PLAN To [facility] after financial process completed
--- NOTE | 2023-10-31 10:48 | W.PN.HOSP.TC ---
Today's Communication/Plan
-
see bold
Assessment / Plan
Assessment / Plan
Gen: NAD, Awake and alert.
Eyes: continues to remain EOMI, PERRLA, no scleral icterus.
Neck: supple.
CV: RRR, +S1/S2, no m/r/g.
Resp: continues to remain CTAB, no rales, wheezes, or rhonchi.
Abd: +BS, soft, NT, ND
Skin: No rashes.
Neuro: CN 2-12 intact, non-focal.
Psych: calm, mildly flat affect
CT brain: No acute intracranial abnormality.
CTA head/neck: No CTA evidence for high-grade stenosis or occlusion of the arterial vasculature in the head or neck.
MRI brain: No MRI evidence for an acute infarct.
MRA neck: Normal noncontrast MRA of the neck.
Acute metabolic encephalopathy due to delirium tremens:
-presented with confusion, L-sided facial droop which occurred while patient was in the hospital waiting room visiting family. Stroke alert was called. Acute CVA was ruled out by MRI brain above.
-Suspect symptoms are due to alcohol withdrawal
-cont MSAS protocol (thiamine/folate/Ativan PRN)
-given a dose of IV phenobarbital then placed on phenobarbital taper which he has now completed
-was on IVFs, now off
Hypotonic hyponatremia:
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
-serum Osm 258, UOsm 334, Jennifer 140
-samsca 15mg given on 10/26/23 and 10/29/23
-renal following
Essential hypertension:
-exacerbated by DTs. Cont Avapro/Bystolic.
-Norvasc 5mg daily started 10/28/23. Increase to 10mg daily.
Hypokalemia, resolved
FULL/Lovenox
Remains medically stable for discharge (since 10/30/23AM). Case management aware.
Anticipated Discharge: Today
Subjective/Interval History
-
Date of Service: October 31, 2023
No new complaints.
Objective Data
-
Labs:
Laboratory Results
10/31/23
07:22
WBC 4.1 L
Hgb 14.0
Hct 39.4
Plt Count 147
Sodium 130 L
Potassium 3.5
Chloride 94 L
Carbon Dioxide 30
BUN 9
Creatinine 0.8
Glucose 93
Calcium 8.7
Vital Signs:
Vital Signs
Temp Pulse Resp BP Pulse Ox
98.0 F 62 16 176/91 99
10/31/23 07:56 10/31/23 10:10 10/31/23 07:56 10/31/23 10:10 10/31/23 10:02
I&O
10/30/23 10/31/23 11/01/23
06:59 06:59 06:59
Intake Total 1800 / 1800 1080 / 1080
Output Total 2350 / 2350 1450 / 1450
Balance -550 / -550 -370 / -370
[2023-10-31] MEDS: KCL 20 MEQ PO ×2 (12:32→20:11)
[2023-10-31] MEDS: LASIX 20 MG PO (12:32)
--- NOTE | 2023-10-31 13:49 | W.PN.NEPH.PH ---
Today's Communication / Plan
-
lasix 20mg daily
Assessment/Plan
-
IMP:
Acute metabolic encephalopathy due to delirium tremens
Hypotonic hyponatremia
Essential hypertension
Hypokalemia
ETOH abuse
Anemia
Thrombocytopenia
Hypocalcemia
Plan:
A/w AMS, stroke alert but w/u neg
hyponatremia, no previous labs to compare
high ADH state U osmo 334, U na high on NS
suspect multifactorial etiology mainly from ETOH, poor solute intake
TSH is normal, FR 48 ounces/day
Na better post [facility] 10/29 but now decreasing to 130 from 133
start lasix 20mg daily with kcl
Vitamin D levels very low --> could consider high dose vitamin D weekly on discharge
BP are high during treatment of DT, on 3meds, expect addition of diuretic will help , may need ARR in future
BMP in 3days after d/c f/u with PCP
for [facility] when pending insurance
-
-
Date of Service: October 31, 2023
CC / HPI / ROS
-
Chief Complaint:
hyponatremia
History of Present Illness:
Na decreasing to 130 s/p [facility] 10/29.
BP high over all
no fever
Review of Systems:
no cp or sob
feels well
Labs
-
Labs:
WBC 4.1 10^3/uL (4.8-10.8) L 10/31/23 07:22
RBC 4.19 10^6/uL (4.70-6.10) L 10/31/23 07:22
Hgb 14.0 g/dL (13.0-18.0) 10/31/23 07:22
Hct 39.4 % (39.0-52.0) 10/31/23 07:22
Plt Count 147 10^3/uL (130-400) 10/31/23 07:22
Sodium 130 mmol/L (135-145) L 10/31/23 07:22
Potassium 3.5 mmol/L (3.5-5.1) 10/31/23 07:22
Chloride 94 mmol/L (98-107) L 10/31/23 07:22
Carbon Dioxide 30 mmol/L (22-30) 10/31/23 07:22
BUN 9 mg/dl (9-20) 10/31/23 07:22
Creatinine 0.8 mg/dL (0.7-1.3) 10/31/23 07:22
eGFR > 60.00 10/31/23 07:22
Glucose 93 mg/dl (70-99) 10/31/23 07:22
Calcium 8.7 mg/dl (8.4-10.2) 10/31/23 07:22
Albumin 3.7 g/dl (3.5-5.0) 10/28/23 07:20
Physical Exam
-
Vital Signs:
Vital Signs
Temp Pulse Resp BP Pulse Ox
98.0 F 64 16 144/88 99
10/31/23 07:56 10/31/23 12:32 10/31/23 07:56 10/31/23 12:32 10/31/23 10:02
Cardiovascular:: Regular rate and rhythm
Respiratory:: Bilateral: CTA
Lung Excursion:: Normal
Abdomen:: Nontender and Soft
Extremity Edema:: None: Bilateral:
Castaneda Catheter: No
[2023-10-31 15:40] VITALS: BP 141/79
--- NOTE | 2023-10-31 15:41 | PTCARENOTE ---
Pt AAO x3, pleasant and cooperative. Has stuttering speech at times. NGUYEN well, OOB to chair with assist x1/walker, donnell well. VSS. On room air- pulse ox 100%. Abd soft, rounded, donnell PO well. Incont urine; #25 condom cath changed, P/I mod amts
clear yellow urine. Resting in bed at present, no c/o. Will continue to monitor.
[2023-10-31] MEDS: LIPITOR 40 MG PO (18:12)
[2023-10-31] MEDS: TYLENOL 650 MG PO (20:11)
[2023-10-31] MEDS: COLACE 100 MG PO (20:38)
[2023-10-31 23:26] VITALS: BP 143/85
[2023-11-01 07:31] LABS: Hematocrit 38.4 % (39.0-52.0); Hemoglobin 13.3 g/dL (13.0-18.0); Mean Corp Hgb Conc. 34.6 g/dL (33.0-37.0); Mean Corpuscular Volume 95.3 fL (80.0-94.0); Mean Platelet Volume 9.7 fL (7.4-10.4); Platelet Count 172 10^3/uL (130-400); Red Blood Cell Count 4.03 10^6/uL (4.70-6.10); Red Cell Dist. Width 12.1 % (11.5-14.5); White Blood Cell Count 3.6 10^3/uL (4.8-10.8)
[2023-11-01 07:47] LABS: Blood Urea Nitrogen 10 mg/dl (9-20); Calcium 8.4 mg/dl (8.4-10.2); Carbon Dioxide 29 mmol/L (22-30); Chloride 97 mmol/L (98-107); Estimated Creatinine Clearance 102 ml/min; Glucose 95 mg/dl (70-99); Potassium 3.8 mmol/L (3.5-5.1); Sodium 130 mmol/L (135-145); eGFR > 60.00
[2023-11-01 07:50] VITALS: BP 165/99
[2023-11-01] MEDS: BYSTOLIC 10 MG PO (08:32)
[2023-11-01] MEDS: VITAMIN B1 100 MG PO (08:32)
[2023-11-01] MEDS: AVAPRO 300 MG PO (08:32)
[2023-11-01] MEDS: LOVENOX 40 MG SC (08:32)
[2023-11-01] MEDS: MAGNESIUM OXIDE 500 MG PO (08:32)
[2023-11-01] MEDS: LASIX 20 MG PO (08:33)
[2023-11-01] MEDS: FOLVITE 1 MG PO (08:33)
[2023-11-01] MEDS: VITAMIN D3 (cholecalciferol) 125 MCG PO (08:33)
[2023-11-01] MEDS: KCL 20 MEQ PO (08:33)
[2023-11-01] MEDS: NORVASC 10 MG PO (08:33)
[2023-11-01 09:40] VITALS: BP 159/90; PULSE 68
[2023-11-01] MEDS: TYLENOL 650 MG PO (09:41)
[2023-11-01] MEDS: SENOKOT 8.59999999999999964 MG PO (09:41)
[2023-11-01] MEDS: MIRALAX 17 GRAMS PO (09:42)
[2023-11-01] MEDS: DESENEX/MITRAZOL/ZEASORB 1 APPLIC TOPICAL (09:48)
--- NOTE | 2023-11-01 10:14 | CM ---
Addendum entered by Cata Justice 11/01/23 15:44:
CM spoke with Dhruv from [facility], informed patient has been approved through [facility] and accepted at [facility], can accept patient today. Patient reports he feels constipated. Per Hospitalist and nurse, patient had BM on Wednesday. CM updated [facility], able to
accept patient. CM will continue to follow for discharge planning needs.
Plan; [facility], discharge today.
Addendum entered by Cata Justice 11/01/23 13:13:
CM spoke with Priscila, awaiting on management letter from patients daughter, Priscila reports daughter will be emailing it to her. Priscila will then submit application.
Plan; [facility] when [facility] documentation is completed
Addendum entered by Cata Justice 11/01/23 10:52:
Patient seen, hopeful to go to [facility]. CM will update patient once CM hears from [facility].
Original Note:
Per Dhruv (David), [facility] is awaiting documents needed from patients so patient can be accepted at [facility]. CM placed call to Priscila, left voicemail to check if documents were received. CM will continue to follow for discharge planning needs.
Plan; [facility] when [facility] documentation is completed.
--- NOTE | 2023-11-01 13:09 | W.PN.NEPH.PH ---
Today's Communication / Plan
-
samsca
Assessment/Plan
-
IMP:
Acute metabolic encephalopathy due to delirium tremens
Hypotonic hyponatremia
Essential hypertension
Hypokalemia
ETOH abuse
Anemia
Thrombocytopenia
Hypocalcemia
Plan:
-samsca
-follow BMP
-continue lasix/FR
-
-
Date of Service: November 01, 2023
CC / HPI / ROS
-
Chief Complaint:
hyponatremia
History of Present Illness:
Na stable at 130
BP high
no fever
Review of Systems:
no cp or sob
feels well
Labs
-
Labs:
WBC 3.6 10^3/uL (4.8-10.8) L 11/01/23 07:01
RBC 4.03 10^6/uL (4.70-6.10) L 11/01/23 07:01
Hgb 13.3 g/dL (13.0-18.0) 11/01/23 07:01
Hct 38.4 % (39.0-52.0) L 11/01/23 07:01
Plt Count 172 10^3/uL (130-400) 11/01/23 07:01
Sodium 130 mmol/L (135-145) L 11/01/23 07:01
Potassium 3.8 mmol/L (3.5-5.1) 11/01/23 07:01
Chloride 97 mmol/L (98-107) L 11/01/23 07:01
Carbon Dioxide 29 mmol/L (22-30) 11/01/23 07:01
BUN 10 mg/dl (9-20) 11/01/23 07:01
Creatinine 0.8 mg/dL (0.7-1.3) 11/01/23 07:01
eGFR > 60.00 11/01/23 07:01
Glucose 95 mg/dl (70-99) 11/01/23 07:01
Calcium 8.4 mg/dl (8.4-10.2) 11/01/23 07:01
Albumin 3.7 g/dl (3.5-5.0) 10/28/23 07:20
Physical Exam
-
Vital Signs:
Vital Signs
Temp Pulse Resp BP Pulse Ox
98.3 F 69 18 165/99 99
11/01/23 07:50 11/01/23 08:33 11/01/23 07:50 11/01/23 08:33 11/01/23 07:50
Cardiovascular:: Regular rate and rhythm
Respiratory:: Bilateral: Coarse
Lung Excursion:: Normal
Abdomen:: Nontender and Soft
Bowel Sounds:: Normal
Extremity Edema:: None: Bilateral:
--- NOTE | 2023-11-01 13:46 | W.PN.HOSP.TC ---
Addendum entered and electronically signed by Bradley Lopez MD 11/01/23 18:25:
Stage 1 sacral pressure ulcer
Addendum entered and electronically signed by Bradley Lopez MD 11/01/23 15:33:
More than 30 minutes spent in discharge including
Final examination of the patient
Summarizing hospital stay
Instructions for continuing care to all relevant caregivers
Preparation of discharge records, prescriptions, and referral forms
Total time spent (in minutes): 42
Original Note:
Today's Communication/Plan
-
awaiting [facility] placement
Assessment / Plan
Assessment / Plan
Assessment:
Acute metabolic encephalopathy due to delirium tremens:
- presented with confusion, L-sided facial droop which occurred while patient was in the hospital waiting room visiting family. Stroke alert was called. Acute CVA was ruled out by MRI brain above.
- suspect symptoms are due to alcohol withdrawal
- cont MSAS protocol (thiamine/folate/Ativan PRN)
- given a dose of IV phenobarbital then placed on phenobarbital taper which he has now completed
- was on IVFs, now off
Hypotonic hyponatremia
- Likely due to EtOH abuse and SIADH
- serum Osm 258, Urine Osm 334, Urine Na 140
- s/p Samsca x 2 doses
- continue oral lasix
- Na stable 130
- renal following
Essential hypertension:
- exacerbated by DTs. Cont Avapro/Bystolic/Norvasc
Hypokalemia, resolved
DVT ppx: Lovenox
Code: Full
Dispo: Remains medically stable for discharge. Case management aware.
Anticipated Discharge: 24 - 48 hours
Subjective/Interval History
-
Date of Service: November 01, 2023
reports no recent BM, requesting meds
denies any abd pain, n/v
Objective Data
-
Labs:
Laboratory Results
11/01/23
07:01
WBC 3.6 L
Hgb 13.3
Hct 38.4 L
Plt Count 172
Sodium 130 L
Potassium 3.8
Chloride 97 L
Carbon Dioxide 29
BUN 10
Creatinine 0.8
Glucose 95
Calcium 8.4
Vital Signs:
Vital Signs
Temp Pulse Resp BP Pulse Ox
98.3 F 69 18 165/99 99
11/01/23 07:50 11/01/23 08:33 11/01/23 07:50 11/01/23 08:33 11/01/23 07:50
I&O
10/31/23 11/01/23 11/02/23
06:59 06:59 06:59
Intake Total 1080 / 1080 1140 / 1140
Output Total 1450 / 1450 1350 / 1350
Balance -370 / -370 -210 / -210
Physical Exam
-
General: No Apparent Distress
HEENT: Normocephalic and Atraumatic
Respiratory: Negative Wheezes or Rales
Cardiac: Regular Rhythm and S1/S2
GI: Soft
Genito-urinary: No Costovertebral Tender
Musculoskeletal: No Edema
Neuro: AO x 3
Hematologic / Lymphatic: No Lymphadenopathy
Psych: Calm
Data Reviewed
-
Total Time Spent with Patient (in minutes): 45
Labs: Labs Reviewed by me
[2023-11-01] MEDS: SAMSCA 15 MG PO (14:05)
--- NOTE | 2023-11-01 15:11 | PN.CDI ---
CDI
- -
CDI:
Physician Documentation Request
Admit Date: 10/24/23 19:46
Dear Doctor Jessica,
Patient admitted for metabolic encephalopathy due to delirium tremens.
10/29-10/29 Nursing documentation 'Stage 1 sacral pressure ulcer'
Physician documentation of the type and location of wounds is required for compliant documentation. Based on the above clinical findings and your assessment, please provide the following in your progress note:
1. Location of the ulcer/wound, including laterality.
2. Type (etiology) of ulcer/wound:
- Pressure (decubitus) ulcer
- Other
- Unable to determine
3. If a pressure ulcer, please also include the stage* of the ulcer:
- Stage 1 - Skin intact, non-blanchable redness
- Stage 2 - Partial thickness loss of dermis, includes intact or open blister
- Stage 3 - Full thickness tissue not including bone, tendon or muscle
- Stage 4 - Full thickness tissue loss, including exposed bone, tendon or muscle
- Unstageable - Full thickness loss in which the base of the ulcer is covered by slough (yellow, parra, oneil, green or brown) and/or eschar (parra, brown or black) in the wound bed.
- Unable to determine
Use of terms such as suspected, likely, concern for, or probable (associated with a specific diagnosis that is being evaluated, monitored, or treated as if it exists) are acceptable and can be coded in the inpatient setting, when documented at the
time of discharge.
Thank you,
Barb Darling RN, BSN
CDI Specialist
Available via [place] text
Please use your independent medical judgment in providing your response.
*Source: National Pressure Ulcer Advisory Panel (NPUAP)
--- NOTE | 2023-11-01 15:15 | PTOTSP ---
ST Follow-Up
Pt does not present with any dysphagia needs currently. Pt continues to present with moderate cognitive linguistic impairment and would benefit from acute inpatient rehabilitation for further assessment and tx. Of note, pt lives home alone and
manages all of his own finances and medications - this is of great concern as of presently, given pt's performance on this brief assessment today. Would recommend close follow-up by social work while in acute rehab for any supervision needs upon
discharge from rehab.
--- NOTE | 2023-11-01 15:33 | W.DS.TRANS ---
DC Summary - Finance Mgr
-
Discharge Instructions:
Discharge Diagnosis/Procedures Acute metabolic encephalopathy due to delirium
tremens, hyponatremia
Diet Regular
Activity As tolerated
Instructions:
Stand-Alone Forms:
Changes to Home Medications: No
Discharge Medications:
DC Medications w/original date entered in [employer]
acetaminophen 500 mg tablet (Tylenol Extra Strength) 500 mg PO DAILYPRN PRN mild pain 10/24/23
irbesartan 300 mg tablet 300 mg PO DAILY 10/24/23
nebivolol 10 mg tablet 10 mg PO DAILY 10/24/23
amlodipine 10 mg tablet 10 mg PO DAILY #30 tabs 11/01/23
atorvastatin 40 mg tablet 40 mg PO QPM #30 tabs 11/01/23
cholecalciferol (vitamin D3) 125 mcg (5,000 unit) tablet 125 mcg PO DAILY #100 tabs 11/01/23
folic acid 1 mg tablet 1 mg PO DAILY #100 tabs 11/01/23
furosemide 20 mg tablet 20 mg PO DAILY #30 tabs 11/01/23
magnesium oxide 500 mg PO BID #60 tabs 11/01/23
polyethylene glycol 3350 17 gram oral powder packet (HealthyLax) 17 g PO DAILY #30 ea 11/01/23
potassium chloride 20 mEq tablet,extended release(part/cryst) 20 meq PO DAILY #30 tabs 11/01/23
thiamine HCl (vitamin B1) 100 mg tablet 100 mg PO BID #60 tabs 11/01/23
Home Medication Changes
Pending Results: No
Total time spent discharging patient (in min): 42
[2023-11-01 15:50] VITALS: BP 158/83
[2023-11-01 17:42] VITALS: BP 174/89
--- NOTE | 2023-11-01 20:02 | PTCARENOTE ---
Report called to [facility]. Peripheral IV removed from right lower arm. Discharge instructions finalized. Patient left unit via wheelchair with staff escort. Patient denies issues, concerns or questions.
== END 2023-11-01 18:07 | DRG 896 ==
LOC: 4 EAST ACU 19:46
PROVIDERS: Internal Medicine; Physician Assistant; Registered Nurse; ADMITTING PHYSICIAN Internal Medicine; ATTENDING PHYSICIAN Internal Medicine; CONSULT PHYSICIAN Physical Medicine & Rehabilitation; EMERGENCY PHYSICIAN Emergency Medicine; OTHER PHYSICIAN Internal Medicine; OTHER PHYSICIAN Psychiatry & Neurology Neurology
DX: F10.231 Alcohol dependence with withdrawal delirium (principal); G92.8 Other toxic encephalopathy; I16.1 Hypertensive emergency; E87.1 Hypo-osmolality and hyponatremia; Z11.52 Encounter for screening for COVID-19; Z79.82 Long term (current) use of aspirin; I10 Essential (primary) hypertension; E87.6 Hypokalemia; D64.9 Anemia, unspecified; D69.6 Thrombocytopenia, unspecified; E83.51 Hypocalcemia; L89.151 Pressure ulcer of sacral region, stage 1
CPT/HCPCS: 70450; 70496; 70498; 70547; 70551; 80048; 80053; 80061; 80306; 81003; 82077; 82306; 82962; 83735; 83930; 83935; 84300; 84443; 84484; 85025; 85027; 85610; 85730; 87324; 87449; 87502; 87811; 92523; 92526; 92610; 93005; 96361; 96365; 96375; 97116; 97129; 97163; 97164; 97167; 97530; 97535; 99285; Q9967